=== PATIENT | male | born 1930 | race Caucasian/White ===

== ENCOUNTER 2018-10-25 13:19 | Inpatient (IN) | payer BC ==
[~2018-10-25] VITALS: Ht 170.2 cm; Wt 91.3 kg
[2018-10-25] MEDS ORDERED: FINA5TAB4 PO (13:57)
[2018-10-25] MEDS ORDERED: LEVO500T8 PO (14:00)
[2018-10-25] MEDS ORDERED: LEVO25TA4 PO (14:00)
[2018-10-25] MEDS ORDERED: TAMS0.4C97 PO (14:02)
[2018-10-25 14:05] VITALS: BP 121/64
[2018-10-25] MEDS ORDERED: MEMA10TA PO (14:05)
[2018-10-25] MEDS ORDERED: DONE10TA61 PO (14:05)
[2018-10-25] MEDS ORDERED: MAG HYDROX/AL HYDROX/SIMETH 30 ML ORAL.SUSP PO PRN (15:15)
[2018-10-25] MEDS ORDERED: MAGNESIUM HYDROXIDE 2,400 MG/30 ML ORAL.SUSP. PO PRN (15:15)
[2018-10-25] MEDS ORDERED: METHYL SALICYLATE/MENTHOL TOPICAL OINTMENT 29GM TUBE. TP PRN (15:15)
[2018-10-25 15:55] LABS: BASO # 0.1 x10^3/uL (0.0-0.2); BASO % 1 % (0-3); EOS # 0.2 x10^3/uL (0.0-0.7); EOS % 2 % (0-3); HEMATOCRIT 44.2 % (39.0-53.0); HEMOGLOBIN 15.1 g/dL (13.0-17.5); LYMPH # 2.2 x10^3/uL (1.0-4.8); LYMPH % 23 % (24-48); MEAN CORPUSCULAR HEMOGLOBIN 31 pg (25-35); MEAN CORPUSCULAR HGB CONC 34 g/dL (31-37); MEAN CORPUSCULAR VOLUME 92 fL (79-100); MONO # 1.1 x10^3/uL (0.0-1.1); MONO % 12 % (0-9); NEUT # 5.9 x10^3uL (1.8-7.7); NEUT % 62 % (31-73); PLATELET COUNT 351 x10^3/uL (140-400); RED BLOOD COUNT 4.82 x10^6/uL (4.30-5.70); RED CELL DISTRIBUTION WIDTH 13.9 % (11.5-14.5); WHITE BLOOD COUNT 9.4 x10^3/uL (4.0-11.0)
[2018-10-25 16:07] LABS: ALBUMIN 3.3 g/dL (3.4-5.0); ALBUMIN/GLOBULIN RATIO 0.7 (1.0-1.7); CALCIUM 9.4 mg/dL (8.5-10.1); CREATININE 1.5 mg/dL (0.7-1.3); GFR 44.3; POTASSIUM 4.3 mmol/L (3.5-5.1); TOTAL BILIRUBIN 0.7 mg/dL (0.2-1.0); TOTAL PROTEIN 8.3 g/dL (6.4-8.2)
[2018-10-25 16:40] VITALS: BP 159/72
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
[2018-10-25] MEDS: DONEPEZIL HCL 10 MG TABLET PO SCH (20:21)
[2018-10-25] MEDS: MEMANTINE 10 MG TABLET. PO SCH (20:21)
[2018-10-25] MEDS: TAMSULOSIN 0.4 MG CAP.ER.24H. PO SCH (20:21)
[2018-10-26 03:28] LABS: BILIRUBIN,URINE NEG (NEG); CLARITY,URINE HAZY; COLOR,URINE YELLOW; GLUCOSE,URINE NEG (NEG)
[2018-10-26 03:29] LABS: BACTERIA,URINE MOD /HPF (0-FEW); NITRITE,URINE NEG (NEG); RBC,URINE >40 /HPF (0-2); SQUAMOUS EPITHELIAL CELL,UR FEW /LPF; UROBILINOGEN,URINE 0.2 mg/dL (0.2 mg/dL); WBC,URINE >40 /HPF (0-4)
[2018-10-26] MEDS: LEVOTHYROXINE 25 MCG TABLET. PO SCH (04:55)
[2018-10-26] MEDS: levoFLOXacin 250 MG TABLET PO SCH (04:55)
[2018-10-26 05:10] LABS: THYROXINE 9.2 ug/dL (4.5-12.0)
[2018-10-26 05:47] VITALS: BP 105/69
[2018-10-26 06:08] LABS: HEMOGLOBIN A1C 5.8 % (4.8-5.6)
[2018-10-26] MEDS: MEMANTINE 10 MG TABLET. PO SCH ×2 (08:11→19:22)
[2018-10-26] MEDS: DONEPEZIL HCL 10 MG TABLET PO SCH ×2 (08:11→19:22)
[2018-10-26] MEDS: FINASTERIDE 5 MG TABLET PO SCH (08:12)
[2018-10-26] MEDS: ACETAMINOPHEN 325 MG TABLET PO PRN (08:12)
--- NOTE | 2018-10-26 09:27 | PDOC ---
Exam Note: Eduardo Note: Late entry for DOS 10.25.2018. Please also refer to the separate dictated note~ for this date of service dictated separately.~Patient seen individually. Discussed the patient with Nursing staff reviewed the chart.~Reviewed interim history and current functioning. Reviewed vital signs,~Labs/ Radiology~and current medications noted below. Continue current treatment with the changes noted in the dictated addendum note Assessment: Vital Signs: VS - Last 72 Hours, by Label Date Time Temp Pulse Resp B/P (MAP) Pulse Ox O2 Delivery O2 Flow Rate FiO2 10/26/18 05:47 97.6 90 18 105/69 (81) 98 10/25/18 16:40 97.4 83 18 159/72 (101) 97 10/25/18 14:05 97.1 73 20 121/64 (83) 99 Vital Signs Date Time Temp Pulse Resp B/P (MAP) Pulse Ox O2 Delivery O2 Flow Rate FiO2 10/26/18 05:47 97.6 90 18 105/69 (81) 98 I&O Intake and Output 10/26/18 07:00 Intake Total 440 ml Balance 440 ml Intake Oral 440 ml # Voids 2 Labs: Laboratory Tests Test 10/25/18 15:35 10/26/18 01:20 White Blood Count 9.4 x10^3/uL (4.0-11.0) Red Blood Count 4.82 x10^6/uL (4.30-5.70) Hemoglobin 15.1 g/dL (13.0-17.5) Hematocrit 44.2 % (39.0-53.0) Mean Corpuscular Volume 92 fL (79-100) Mean Corpuscular Hemoglobin 31 pg (25-35) Mean Corpuscular Hemoglobin Concent 34 g/dL (31-37) Red Cell Distribution Width 13.9 % (11.5-14.5) Platelet Count 351 x10^3/uL (140-400) Neutrophils (%) (Auto) 62 % (31-73) Lymphocytes (%) (Auto) 23 % (24-48) L Monocytes (%) (Auto) 12 % (0-9) H Eosinophils (%) (Auto) 2 % (0-3) Basophils (%) (Auto) 1 % (0-3) Neutrophils # (Auto) 5.9 x10^3uL (1.8-7.7) Lymphocytes # (Auto) 2.2 x10^3/uL (1.0-4.8) Monocytes # (Auto) 1.1 x10^3/uL (0.0-1.1) Eosinophils # (Auto) 0.2 x10^3/uL (0.0-0.7) Basophils # (Auto) 0.1 x10^3/uL (0.0-0.2) Sodium Level 135 mmol/L (136-145) L Potassium Level 4.3 mmol/L (3.5-5.1) Chloride Level 100 mmol/L (98-107) Carbon Dioxide Level 29 mmol/L (21-32) Anion Gap 6 (6-14) Blood Urea Nitrogen 20 mg/dL (8-26) Creatinine 1.5 mg/dL (0.7-1.3) H Estimated GFR (Cockcroft-Gault) 44.3 BUN/Creatinine Ratio 13 (6-20) Glucose Level 98 mg/dL (70-99) Hemoglobin A1c 5.8 % (4.8-5.6) H Calcium Level 9.4 mg/dL (8.5-10.1) Total Bilirubin 0.7 mg/dL (0.2-1.0) Aspartate Amino Transferase (AST) 34 U/L (15-37) Alanine Aminotransferase (ALT) 45 U/L (16-63) Alkaline Phosphatase 93 U/L (46-116) Total Protein 8.3 g/dL (6.4-8.2) H Albumin 3.3 g/dL (3.4-5.0) L Albumin/Globulin Ratio 0.7 (1.0-1.7) L Thyroxine (T4) 9.2 ug/dL (4.5-12.0) Total Triiodothyronine (TT3) 84 ng/dL (71-180) Urine Collection Type Unknown Urine Color Yellow Urine Clarity Hazy Urine pH 6.0 Urine Specific [place] 1.015 Urine Protein Trace (NEG-TRACE) Urine Glucose (UA) Neg mg/dL (NEG) Urine Ketones (Stick) 15 mg/dL (NEG) Urine Blood Large (NEG) Urine Nitrite Neg (NEG) Urine Bilirubin Neg (NEG) Urine Urobilinogen Dipstick 0.2 mg/dL (0.2 mg/dL) Urine Leukocyte Esterase Large (NEG) Urine RBC >40 /HPF (0-2) Urine WBC >40 /HPF (0-4) Urine Squamous Epithelial Cells Few /LPF Urine Bacteria Mod /HPF (0-FEW) Current Medications: Meds: Current Medications Acetaminophen (Tylenol) 650 mg PRN Q6HRS PRN PO PAIN / TEMP Last administered on 10/26/18 08:12; Start 10/25/18 at 15:15 Multi-Ingredient Ointment (Analgesic [place]) 1 sheba PRN QID PRN TP MUSCLE PAIN; Start 10/25/18 at 15:15 Al Hydroxide/Mg Hydroxide (Mylanta Plus Xs) 15 ml PRN AFTMEALHC PRN PO DYSPEPSIA; Start 10/25/18 at 15:15 Magnesium Hydroxide (Milk Of Magnesia) 2,400 mg PRN QHS PRN PO CONSTIPATION; Start 10/25/18 at 15:15 Tamsulosin HCl (Flomax) 0.4 mg QHS PO Last administered on 10/25/18at 20:21; Start 10/25/18 at 21:00 Donepezil HCl (Aricept) 10 mg BID PO Last administered on 10/26/18 08:11; Start 10/25/18 at 21:00 Finasteride (Proscar) 5 mg DAILY PO Last administered on 10/26/18 08:12; Start 10/26/18 at 09:00 Levofloxacin (Levaquin) 250 mg DAILY06 PO Last administered on 10/26/18at 04:55 ; Start 10/26/18 at 06:00; Stop 10/31/18 at 05:59 Levothyroxine Sodium (Synthroid) 25 mcg DAILY06 PO Last administered on at 04:55; Start 10/26/18 at 06:00 Memantine (Namenda) 10 mg BID PO Last administered on 10/26/18 08:11; Start at 21:00 Active Scripts Active Reported Namenda (Memantine Hcl) 10 Mg Tablet 10 Mg PO BID Aricept (Donepezil Hcl) 10 Mg Tablet 10 Mg PO BID Flomax (Tamsulosin Hcl) 0.4 Mg Cap.er.24h 0.4 Mg PO QHS Levofloxacin 500 Mg Tablet 250 Mg PO DAILY06 7 Days Levothyroxine Sodium 25 Mcg Tablet 25 Mcg PO DAILYAC Finasteride 5 Mg Tablet 5 Mg PO DAILY I have reviewed the current psychotropics carefully including drug interactions. Risk benefit ratio favors no change other than as noted in my dictated progress note. Diagnosis: Problems: (1) Major neurocognitive disorder (2) Anxiety disorder (3) Dementia in Alzheimer's disease with delusions (4) Dementia in Alzheimer's disease with depression (5) Dementia, vascular, with delusions (6) Dementia, vascular, with depression (7) Impulse control disorder ANASTACIA HERNANDEZ MD Oct 26, 2018 09:27
[2018-10-26 13:23] LABS: THYROID STIM HORMONE (TSH) 2.74 uIU/mL (0.358-3.740)
[2018-10-26 15:13] VITALS: BP 96/59
[2018-10-26] MEDS: TAMSULOSIN 0.4 MG CAP.ER.24H. PO SCH (19:22)
[2018-10-26] MEDS: NYSTATIN/TRIAMCIN TOPICAL CREAM 15GM TUBE. TP SCH (19:24)
--- NOTE | 2018-10-26 20:50 | CONS ---
DATE OF CONSULTATION: 10/26/2018 REASON FOR CONSULTATION: Medical management. HISTORY OF PRESENT ILLNESS: The patient is an 88-year-old male patient who was referred to our facility from [facility] by his primary care physician on account of worsening confusion and being combative, resistant to care. He apparently makes sudden fast movement attempting to scare staff. He has been on one-on-one [facility] and he was admitted there with acute mental status changes and has been there for several days, has had a UTI and was dehydrated and basically he was treated, stabilized, and therefore he was transferred to our facility for inpatient psychiatric stabilization. PAST MEDICAL HISTORY: Significant for hypothyroidism, sick sinus syndrome with pacemaker in place, benign prostatic hypertrophy, recent UTI and dehydration. PAST SURGICAL HISTORY: Unobtainable, however, he has left index finger amputated. PAST PSYCHIATRIC HISTORY: Significant for dementia, vascular, Alzheimer with delusion, depression, behavioral disturbance in addition to being extremely hard of hearing and a history of posttraumatic stress disorder. ALLERGIES: He has no known drug allergies. MEDICATIONS: He is currently on following medications: He is on levofloxacin 150 mg daily for UTI, Aricept 10 mg twice a day, tamsulosin 0.4 mg at bedtime, Namenda 10 mg twice a day, levothyroxine sodium 25 mcg once a day, and finasteride 5 mg daily. FAMILY HISTORY: Noncontributory. SOCIAL HISTORY: The patient lives at home with his who apparently has had a CVA herself and incapacitated consequent to this. He does not smoke, drink alcohol, or use any recreational drugs. REVIEW OF SYSTEMS: Unobtainable. PHYSICAL EXAMINATION: GENERAL: When I examined him this afternoon, he was resting flat in bed, in no apparent respiratory distress, somewhat pale, no jaundice, cyanosis, or thyromegaly. No jugular venous distension. No limb edema. VITAL SIGNS: His heart rate was 82, blood pressure was 96/59, temperature was 97.3, respiratory rate was 18, and oxygen saturation was 100%. HEAD, EYES, EARS, NOSE, AND THROAT: Showed normocephalic, atraumatic. NECK: Supple. HEART: Showed normal first and second heart sounds. No gallop, rub, or murmur. CHEST: Clear to auscultation. No crepitation or rhonchi. ABDOMEN: Distended, soft, nontender. NEUROLOGIC: He is very hard of hearing, but otherwise all his cranial nerves are intact. He moves extremities without difficulty. He ambulates with a walker. LABORATORY DATA: Showed a white cell count 9400, hemoglobin 15, hematocrit 44, MCV 92, and platelet count 351,000 with normal manual differential. His chemistry showed serum sodium of 135, potassium 4.3, chloride 100, bicarbonate 29, anion gap of 6, BUN 20, creatinine 1.5, estimated GFR was 44 mL per minute, his glucose was 98. Hemoglobin A1c was only 5.8%. His calcium was 9.4. Total bilirubin, AST, ALT, alkaline phosphatase were normal. Total protein was 8.3, albumin 3.3. Serum triglycerides were 86, total cholesterol 143, LDL was 87, VLDL was 17, HDL cholesterol was ____ and his cholesterol to HDL cholesterol ratio was 3. TSH was normal at 2.740, total T4 was 9.2, and total T3 was 84. His urinalysis showed the urine was yellow, hazy with a pH of 6, specific gravity of 1.015. There was a trace of protein, negative for glucose, ketones, large amount of blood, negative for nitrite, and large amount of leukocyte esterase, more than 40 wbc's, more than 40 rbc's, and moderate amount of bacteria. IMPRESSION: In summary, this is an 88-year-old male patient who was recently admitted to [facility] with altered mental status, found to be due to urinary tract infection as well as dehydration. He was very confused, being combative, resistant to care and was admitted to this unit for inpatient psychiatric stabilization. Medically, he seems to be generally stable. His vital signs are within acceptable range. His lab work also showed that apart from the abnormal finding in his urinalysis, his CBC was within acceptable range for a man of his age. His kidney function slightly elevated at 1.5. His thyroid function and fasting lipid profile all within acceptable range. PLAN: My plan is obviously to continue with all his current medication and finished a course of levofloxacin and I will follow him closely and make any necessary adjustment or recommendation. Thank you, Dr. Yanez for allowing me to participate in the care of this patient. LULU HAMILTON MD DR: SHAZIA/elan JOB#: [id number] / [id number]
[2018-10-26] MEDS ORDERED: PRAZOSIN 1 MG CAPSULE. PO SCH (21:00)
[2018-10-26] MEDS: LACTOBACILLUS RHAMNOSUS GG 1 CAPSULE. PO SCH (21:00)
--- NOTE | 2018-10-26 22:43 | PDOC ---
Exam Note: Eduardo Note: Please also refer to the separate dictated note~for this date of service dictated separately.~Patient seen individually. Discussed the patient with Nursing staff reviewed the chart.~Reviewed interim history and current functioning. Reviewed vital signs,~Labs/ Radiology~and current medications noted below. Continue current treatment with the changes noted in the dictated addendum note Assessment: Vital Signs: Vital Signs Date Time Temp Pulse Resp B/P (MAP) Pulse Ox O2 Delivery O2 Flow Rate FiO2 10/26/18 15:13 97.3 82 18 96/59 (71) 100 I&O Intake and Output 10/26/18 07:00 Intake Total 440 ml Balance 440 ml Intake Oral 440 ml # Voids 2 Labs: Laboratory Tests Test 10/26/18 01:20 Urine Collection Type Unknown Urine Color Yellow Urine Clarity Hazy Urine pH 6.0 Urine Specific [place] 1.015 Urine Protein Trace (NEG-TRACE) Urine Glucose (UA) Neg mg/dL (NEG) Urine Ketones (Stick) 15 mg/dL (NEG) Urine Blood Large (NEG) Urine Nitrite Neg (NEG) Urine Bilirubin Neg (NEG) Urine Urobilinogen Dipstick 0.2 mg/dL (0.2 mg/dL) Urine Leukocyte Esterase Large (NEG) Urine RBC >40 /HPF (0-2) Urine WBC >40 /HPF (0-4) Urine Squamous Epithelial Cells Few /LPF Urine Bacteria Mod /HPF (0-FEW) Current Medications: Meds: Current Medications Acetaminophen (Tylenol) 650 mg PRN Q6HRS PRN PO PAIN / TEMP Last administered on 10/26/18at 08:12; Start 10/25/18 at 15:15 Multi-Ingredient Ointment (Analgesic [place]) 1 sheba PRN QID PRN TP MUSCLE PAIN; Start 10/25/18 at 15:15 Al Hydroxide/Mg Hydroxide (Mylanta Plus Xs) 15 ml PRN AFTMEALHC PRN PO DYSPEPSIA; Start 10/25/18 at 15:15 Magnesium Hydroxide (Milk Of Magnesia) 2,400 mg PRN QHS PRN PO CONSTIPATION; Start 10/25/18 at 15:15 Tamsulosin HCl (Flomax) 0.4 mg QHS PO Last administered on 10/26/18at 19:22; Start 10/25/18 at 21:00 Donepezil HCl (Aricept) 10 mg BID PO Last administered on 10/26/18 19:22; Start 10/25/18 at 21:00 Finasteride (Proscar) 5 mg DAILY PO Last administered on 10/26/18at 08:12; Start 10/26/18 at 09:00 Levofloxacin (Levaquin) 250 mg DAILY06 PO Last administered on 10/26/18at 04:55 ; Start 10/26/18 at 06:00; Stop 10/31/18 at 05:59 Levothyroxine Sodium (Synthroid) 25 mcg DAILY06 PO Last administered on at 04:55; Start 10/26/18 at 06:00 Memantine (Namenda) 10 mg BID PO Last administered on 10/26/18 19:22; Start at 21:00 Lactobacillus Rhamnosus (Culturelle) 1 cap BID PO ; Start 10/26/18 at 21:00 Nystatin/ Triamcinolone Acetonide (Mycolog Ii) 1 sheba BID TP Last administered on 10/26/18at 19:24; Start 10/26/18 at 21:00 Prazosin HCl (Minipress) 0.5 mg BID PO ; Start 10/26/18 at 21:00; Stop 10/26/18 at 21:00; Status DC Active Scripts Active Reported Namenda (Memantine Hcl) 10 Mg Tablet 10 Mg PO BID Aricept (Donepezil Hcl) 10 Mg Tablet 10 Mg PO BID Flomax (Tamsulosin Hcl) 0.4 Mg Cap.er.24h 0.4 Mg PO QHS Levofloxacin 500 Mg Tablet 250 Mg PO DAILY06 7 Days Levothyroxine Sodium 25 Mcg Tablet 25 Mcg PO DAILYAC Finasteride 5 Mg Tablet 5 Mg PO DAILY I have reviewed the current psychotropics carefully including drug interactions. Risk benefit ratio favors no change other than as noted in my dictated progress note. Diagnosis: Problems: (1) Major neurocognitive disorder (2) Anxiety disorder (3) Dementia in Alzheimer's disease with delusions (4) Dementia in Alzheimer's disease with depression (5) Dementia, vascular, with delusions (6) Dementia, vascular, with depression (7) Impulse control disorder ANASTACIA HERNANDEZ MD Oct 26, 2018 22:43
[2018-10-27 06:01] VITALS: BP 114/71
[2018-10-27] MEDS: levoFLOXacin 250 MG TABLET PO SCH (06:13)
[2018-10-27] MEDS: LEVOTHYROXINE 25 MCG TABLET. PO SCH (06:13)
[2018-10-27] MEDS: DONEPEZIL HCL 10 MG TABLET PO SCH ×2 (08:49→19:22)
[2018-10-27] MEDS: MEMANTINE 10 MG TABLET. PO SCH ×2 (08:49→19:22)
[2018-10-27] MEDS: NYSTATIN/TRIAMCIN TOPICAL CREAM 15GM TUBE. TP SCH ×2 (08:50→19:22)
[2018-10-27] MEDS: FINASTERIDE 5 MG TABLET PO SCH (08:50)
[2018-10-27] MEDS: LACTOBACILLUS RHAMNOSUS GG 1 CAPSULE. PO SCH ×2 (08:50→19:22)
[2018-10-27 16:12] VITALS: BP 115/74
[2018-10-27] MEDS: TAMSULOSIN 0.4 MG CAP.ER.24H. PO SCH (19:22)
[2018-10-27] MEDS: ACETAMINOPHEN 325 MG TABLET PO PRN (20:22)
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
--- NOTE | 2018-10-27 22:23 | PDOC ---
Exam Note: Eduardo Note: Please also refer to the separate dictated note~for this date of service dictated separately.~Patient seen individually. Discussed the patient with Nursing staff reviewed the chart.~Reviewed interim history and current functioning. Reviewed vital signs,~Labs/ Radiology~and current medications noted below. Continue current treatment with the changes noted in the dictated addendum note Assessment: Vital Signs: Vital Signs Date Time Temp Pulse Resp B/P (MAP) Pulse Ox O2 Delivery O2 Flow Rate FiO2 10/27/18 16:12 97.4 82 20 115/74 (88) 94 I&O Intake and Output 10/27/18 07:00 Intake Total 900 ml Balance 900 ml Intake Oral 900 ml # Bowel Movements 1 Current Medications: Meds: Current Medications Acetaminophen (Tylenol) 650 mg PRN Q6HRS PRN PO PAIN / TEMP Last administered on 10/27/18at 20:22; Start 10/25/18 at 15:15 Multi-Ingredient Ointment (Analgesic [place]) 1 sheba PRN QID PRN TP MUSCLE PAIN; Start 10/25/18 at 15:15 Al Hydroxide/Mg Hydroxide (Mylanta Plus Xs) 15 ml PRN AFTMEALHC PRN PO DYSPEPSIA; Start 10/25/18 at 15:15 Magnesium Hydroxide (Milk Of Magnesia) 2,400 mg PRN QHS PRN PO CONSTIPATION; Start 10/25/18 at 15:15 Tamsulosin HCl (Flomax) 0.4 mg QHS PO Last administered on 10/27/18at 19:22; Start 10/25/18 at 21:00 Donepezil HCl (Aricept) 10 mg BID PO Last administered on 10/27/18at 19:22; Start 10/25/18 at 21:00 Finasteride (Proscar) 5 mg DAILY PO Last administered on 10/27/18at 08:50; Start 10/26/18 at 09:00 Levofloxacin (Levaquin) 250 mg DAILY06 PO Last administered on 10/27/18at 06:13 ; Start 10/26/18 at 06:00; Stop 10/31/18 at 05:59 Levothyroxine Sodium (Synthroid) 25 mcg DAILY06 PO Last administered on at 06:13; Start 10/26/18 at 06:00 Memantine (Namenda) 10 mg BID PO Last administered on 10/27/18at 19:22; Start at 21:00 Lactobacillus Rhamnosus (Culturelle) 1 cap BID PO Last administered on at 19:22; Start 10/26/18 at 21:00 Nystatin/ Triamcinolone Acetonide (Mycolog Ii) 1 sheba BID TP Last administered on 10/27/18at 19:22; Start 10/26/18 at 21:00 Prazosin HCl (Minipress) 0.5 mg BID PO ; Start 10/26/18 at 21:00; Stop 10/26/18 at 21:00; Status DC Sertraline HCl (Zoloft) 25 mg DAILY PO ; Start 10/28/18 at 09:00; Stop 10/30/18 at 16:00 Sertraline HCl (Zoloft) 50 mg DAILY PO ; Start 10/31/18 at 09:00 Active Scripts Active Reported Namenda (Memantine Hcl) 10 Mg Tablet 10 Mg PO BID Aricept (Donepezil Hcl) 10 Mg Tablet 10 Mg PO BID Flomax (Tamsulosin Hcl) 0.4 Mg Cap.er.24h 0.4 Mg PO QHS Levofloxacin 500 Mg Tablet 250 Mg PO DAILY06 7 Days Levothyroxine Sodium 25 Mcg Tablet 25 Mcg PO DAILYAC Finasteride 5 Mg Tablet 5 Mg PO DAILY I have reviewed the current psychotropics carefully including drug interactions. Risk benefit ratio favors no change other than as noted in my dictated progress note. Diagnosis: Problems: (1) Major neurocognitive disorder (2) Anxiety disorder (3) Dementia in Alzheimer's disease with delusions (4) Dementia in Alzheimer's disease with depression (5) Dementia, vascular, with delusions (6) Dementia, vascular, with depression (7) Impulse control disorder ANASTACIA HERNANDEZ MD Oct 27, 2018 22:23
[2018-10-28 05:49] VITALS: BP 111/68
[2018-10-28] MEDS: LEVOTHYROXINE 25 MCG TABLET. PO SCH (06:45)
[2018-10-28] MEDS: levoFLOXacin 250 MG TABLET PO SCH (06:45)
[2018-10-28] MEDS: DONEPEZIL HCL 10 MG TABLET PO SCH ×3 (07:59→21:00)
[2018-10-28] MEDS: MEMANTINE 10 MG TABLET. PO SCH ×3 (07:59→21:00)
[2018-10-28] MEDS: FINASTERIDE 5 MG TABLET PO SCH (07:59)
[2018-10-28] MEDS: LACTOBACILLUS RHAMNOSUS GG 1 CAPSULE. PO SCH ×3 (07:59→21:00)
[2018-10-28] MEDS: SERTRALINE 25 MG TABLET. PO SCH (08:00)
[2018-10-28] MEDS: NYSTATIN/TRIAMCIN TOPICAL CREAM 15GM TUBE. TP SCH ×2 (11:56→21:00)
[2018-10-28 16:38] VITALS: BP 119/76
[2018-10-28] MEDS: TAMSULOSIN 0.4 MG CAP.ER.24H. PO SCH ×2 (19:49→21:00)
--- NOTE | 2018-10-28 22:44 | PDOC ---
Exam Note: Eduardo Note: Please also refer to the separate dictated note~for this date of service dictated separately.~Patient seen individually. Discussed the patient with Nursing staff reviewed the chart.~Reviewed interim history and current functioning. Reviewed vital signs,~Labs/ Radiology~and current medications noted below. Continue current treatment with the changes noted in the dictated addendum note Assessment: Vital Signs: Vital Signs Date Time Temp Pulse Resp B/P (MAP) Pulse Ox O2 Delivery O2 Flow Rate FiO2 10/28/18 16:38 97.6 74 18 119/76 (90) 98 I&O Intake and Output 10/28/18 07:00 Intake Total 660 ml Balance 660 ml Intake Oral 660 ml # Voids 1 Current Medications: Meds: Current Medications Acetaminophen (Tylenol) 650 mg PRN Q6HRS PRN PO PAIN / TEMP Last administered on 10/27/18at 20:22; Start 10/25/18 at 15:15 Multi-Ingredient Ointment (Analgesic [place]) 1 sheba PRN QID PRN TP MUSCLE PAIN; Start 10/25/18 at 15:15 Al Hydroxide/Mg Hydroxide (Mylanta Plus Xs) 15 ml PRN AFTMEALHC PRN PO DYSPEPSIA; Start 10/25/18 at 15:15 Magnesium Hydroxide (Milk Of Magnesia) 2,400 mg PRN QHS PRN PO CONSTIPATION; Start 10/25/18 at 15:15 Tamsulosin HCl (Flomax) 0.4 mg QHS PO Last administered on 10/27/18at 19:22; Start 10/25/18 at 21:00 Donepezil HCl (Aricept) 10 mg BID PO Last administered on 10/28/18at 07:59; Start 10/25/18 at 21:00 Finasteride (Proscar) 5 mg DAILY PO Last administered on 10/28/18at 07:59; Start 10/26/18 at 09:00 Levofloxacin (Levaquin) 250 mg DAILY06 PO Last administered on 10/28/18at 06:45 ; Start 10/26/18 at 06:00; Stop 10/31/18 at 05:59 Levothyroxine Sodium (Synthroid) 25 mcg DAILY06 PO Last administered on at 06:45; Start 10/26/18 at 06:00 Memantine (Namenda) 10 mg BID PO Last administered on 10/28/18at 07:59; Start at 21:00 Lactobacillus Rhamnosus (Culturelle) 1 cap BID PO Last administered on at 07:59; Start 10/26/18 at 21:00 Nystatin/ Triamcinolone Acetonide (Mycolog Ii) 1 sheba BID TP Last administered on 10/28/18at 11:56; Start 10/26/18 at 21:00 Prazosin HCl (Minipress) 0.5 mg BID PO ; Start 10/26/18 at 21:00; Stop 10/26/18 at 21:00; Status DC Sertraline HCl (Zoloft) 25 mg DAILY PO Last administered on 10/28/18at 08:00; Start 10/28/18 at 09:00; Stop 10/30/18 at 16:00 Sertraline HCl (Zoloft) 50 mg DAILY PO ; Start 10/31/18 at 09:00 Nystatin (Nystop) 1 sheba BID TP ; Start 10/29/18 at 09:00 Active Scripts Active Reported Namenda (Memantine Hcl) 10 Mg Tablet 10 Mg PO BID Aricept (Donepezil Hcl) 10 Mg Tablet 10 Mg PO BID Flomax (Tamsulosin Hcl) 0.4 Mg Cap.er.24h 0.4 Mg PO QHS Levofloxacin 500 Mg Tablet 250 Mg PO DAILY06 7 Days Levothyroxine Sodium 25 Mcg Tablet 25 Mcg PO DAILYAC Finasteride 5 Mg Tablet 5 Mg PO DAILY I have reviewed the current psychotropics carefully including drug interactions. Risk benefit ratio favors no change other than as noted in my dictated progress note. Diagnosis: Problems: (1) Major neurocognitive disorder (2) Anxiety disorder (3) Dementia in Alzheimer's disease with delusions (4) Dementia in Alzheimer's disease with depression (5) Dementia, vascular, with delusions (6) Dementia, vascular, with depression (7) Impulse control disorder ANASTACIA HERNANDEZ MD Oct 28, 2018 22:44
[2018-10-29] MEDS: LEVOTHYROXINE 25 MCG TABLET. PO SCH ×2 (06:06→06:48)
[2018-10-29] MEDS: levoFLOXacin 250 MG TABLET PO SCH ×2 (06:06→06:48)
[2018-10-29 06:29] VITALS: BP_SYST 127; BP_SYST 98; BP_DIAS 59; BP_DIAS 79
[2018-10-29] MEDS: MEMANTINE 10 MG TABLET. PO SCH ×2 (08:50→20:15)
[2018-10-29] MEDS: DONEPEZIL HCL 10 MG TABLET PO SCH ×2 (08:50→20:15)
[2018-10-29] MEDS: LACTOBACILLUS RHAMNOSUS GG 1 CAPSULE. PO SCH ×2 (08:50→20:15)
[2018-10-29] MEDS: ACETAMINOPHEN 325 MG TABLET PO PRN (08:50)
[2018-10-29] MEDS: FINASTERIDE 5 MG TABLET PO SCH (08:50)
[2018-10-29] MEDS: SERTRALINE 25 MG TABLET. PO SCH (08:50)
[2018-10-29] MEDS: NYSTATIN/TRIAMCIN TOPICAL CREAM 15GM TUBE. TP SCH ×2 (08:50→20:24)
[2018-10-29] MEDS: NYSTATIN TOPICAL POWDER 15GM BOTTLE. TP SCH ×2 (08:52→20:18)
[2018-10-29 16:55] VITALS: BP 123/72
[2018-10-29] MEDS: TAMSULOSIN 0.4 MG CAP.ER.24H. PO SCH (20:15)
--- NOTE | 2018-10-29 21:03 | PN ---
DATE: 10/27/2018 PSYCHIATRIC PROGRESS NOTE This late entry 10/27/2018 covers elements not covered in my initial note. SUBJECTIVE: I met with the patient in the evening. The patient slept 5 hours previous night. Remains confused, nonverbal, sat on the couch in the evening as I met with him. Compliant with medications. He startles easily. He does seem to have symptoms of posttraumatic stress disorder. We considered starting prazosin, but his blood pressure is already low and Dr. Jaquez suggested against this. REVIEW OF SYSTEMS: No CV, , pulmonary, eye, ENT system symptoms on review. Reliability poor. MENTAL STATUS EXAM: Oriented to himself. Insight, judgment, recent and remote memory, attention, concentration, fund of knowledge poor, consistent with his diagnosis. IMPRESSION: Major neurocognitive disorder, Alzheimer, vascular with delusion, depression, behavioral disturbance; anxiety disorder, unspecified; impulse control disorder, unspecified; posttraumatic stress disorder. PLAN: Start Zoloft 25 mg a day for 3 days, then 50 mg a day. Maintain Aricept, Namenda, unchanged for now. MAN Tobias HERNANDEZ MD DR: JONA/elan JOB#: [id number] / [id number]
--- NOTE | 2018-10-29 21:06 | PN ---
DATE: 10/28/2018 PSYCHIATRIC PROGRESS NOTE This late entry 10/28/2018 covers elements not covered in my initial note. SUBJECTIVE: I met with the patient in the evening. The patient was also staffed at a treatment team meeting with the entire team in the morning. He is sleeping an average 5 hours. Appetite 75%. His , Lelia, attended the treatment team meeting and Myrna, the granddaughter attended as well. Reviewed his history at length, at times he has been aggressive with staff, at other times more compliant with meds and cares. REVIEW OF SYSTEMS: No CV, , pulmonary, eye, ENT system symptoms on review. Reliability poor. MENTAL STATUS EXAM: Oriented to himself. Insight, judgment, recent and remote memory, attention, concentration, fund of knowledge poor, consistent with his diagnosis mentioned in my initial note. PLAN: No change from initial note. MAN Tobias HERNANDEZ MD DR: JONA/elan JOB#: [id number] / [id number]
--- NOTE | 2018-10-29 22:41 | PDOC ---
Exam Note: Eduardo Note: Please also refer to the separate dictated note~for this date of service dictated separately.~Patient seen individually. Discussed the patient with Nursing staff reviewed the chart.~Reviewed interim history and current functioning. Reviewed vital signs,~Labs/ Radiology~and current medications noted below. Continue current treatment with the changes noted in the dictated addendum note Assessment: Vital Signs: Vital Signs Date Time Temp Pulse Resp B/P (MAP) Pulse Ox O2 Delivery O2 Flow Rate FiO2 10/29/18 16:55 98.6 86 20 123/72 (89) 97 Room Air I&O Intake and Output 10/29/18 07:00 Intake Total 720 ml Balance 720 ml Intake Oral 720 ml # Voids 1 # Bowel Movements 1 Current Medications: Meds: Current Medications Acetaminophen (Tylenol) 650 mg PRN Q6HRS PRN PO PAIN / TEMP Last administered on 10/29/18at 08:50; Start 10/25/18 at 15:15 Multi-Ingredient Ointment (Analgesic [place]) 1 sheba PRN QID PRN TP MUSCLE PAIN; Start 10/25/18 at 15:15 Al Hydroxide/Mg Hydroxide (Mylanta Plus Xs) 15 ml PRN AFTMEALHC PRN PO DYSPEPSIA; Start 10/25/18 at 15:15 Magnesium Hydroxide (Milk Of Magnesia) 2,400 mg PRN QHS PRN PO CONSTIPATION; Start 10/25/18 at 15:15 Tamsulosin HCl (Flomax) 0.4 mg QHS PO Last administered on 10/29/18at 20:15; Start 10/25/18 at 21:00 Donepezil HCl (Aricept) 10 mg BID PO Last administered on 10/29/18at 20:15; Start 10/25/18 at 21:00 Finasteride (Proscar) 5 mg DAILY PO Last administered on 10/29/18at 08:50; Start 10/26/18 at 09:00 Levofloxacin (Levaquin) 250 mg DAILY06 PO Last administered on 10/29/18at 06:48 ; Start 10/26/18 at 06:00; Stop 10/31/18 at 05:59 Levothyroxine Sodium (Synthroid) 25 mcg DAILY06 PO Last administered on at 06:48; Start 10/26/18 at 06:00 Memantine (Namenda) 10 mg BID PO Last administered on 10/29/18 20:15; Start at 21:00 Lactobacillus Rhamnosus (Culturelle) 1 cap BID PO Last administered on 20:15; Start 10/26/18 at 21:00 Nystatin/ Triamcinolone Acetonide (Mycolog Ii) 1 sheba BID TP Last administered on 10/29/18at 20:24; Start 10/26/18 at 21:00 Prazosin HCl (Minipress) 0.5 mg BID PO ; Start 10/26/18 at 21:00; Stop 10/26/18 at 21:00; Status DC Sertraline HCl (Zoloft) 25 mg DAILY PO Last administered on 10/29/18at 08:50; Start 10/28/18 at 09:00; Stop 10/30/18 at 16:00 Sertraline HCl (Zoloft) 50 mg DAILY PO ; Start 10/31/18 at 09:00 Nystatin (Nystop) 1 sheba BID TP Last administered on 10/29/18at 20:18; Start at 09:00 Active Scripts Active Reported Namenda (Memantine Hcl) 10 Mg Tablet 10 Mg PO BID Aricept (Donepezil Hcl) 10 Mg Tablet 10 Mg PO BID Flomax (Tamsulosin Hcl) 0.4 Mg Cap.er.24h 0.4 Mg PO QHS Levofloxacin 500 Mg Tablet 250 Mg PO DAILY06 7 Days Levothyroxine Sodium 25 Mcg Tablet 25 Mcg PO DAILYAC Finasteride 5 Mg Tablet 5 Mg PO DAILY I have reviewed the current psychotropics carefully including drug interactions. Risk benefit ratio favors no change other than as noted in my dictated progress note. 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
[2018-10-30] MEDS: LEVOTHYROXINE 25 MCG TABLET. PO SCH (06:35)
[2018-10-30] MEDS: levoFLOXacin 250 MG TABLET PO SCH (06:35)
[2018-10-30 06:57] VITALS: BP 105/67
[2018-10-30] MEDS: LACTOBACILLUS RHAMNOSUS GG 1 CAPSULE. PO SCH ×2 (08:49→20:12)
[2018-10-30] MEDS: DONEPEZIL HCL 10 MG TABLET PO SCH ×2 (08:49→20:14)
[2018-10-30] MEDS: MEMANTINE 10 MG TABLET. PO SCH ×2 (08:49→20:12)
[2018-10-30] MEDS: SERTRALINE 25 MG TABLET. PO SCH (08:49)
[2018-10-30] MEDS: FINASTERIDE 5 MG TABLET PO SCH (08:49)
[2018-10-30] MEDS: NYSTATIN TOPICAL POWDER 15GM BOTTLE. TP SCH ×2 (08:50→20:19)
[2018-10-30] MEDS: NYSTATIN/TRIAMCIN TOPICAL CREAM 15GM TUBE. TP SCH ×2 (08:51→20:19)
[2018-10-30 16:13] VITALS: BP 112/66
[2018-10-30] MEDS: TAMSULOSIN 0.4 MG CAP.ER.24H. PO SCH (20:13)
--- NOTE | 2018-10-30 22:00 | PDOC ---
Exam Note: Eduardo Note: Please also refer to the separate dictated note~for this date of service dictated separately.~Patient seen individually. Discussed the patient with Nursing staff reviewed the chart.~Reviewed interim history and current functioning. Reviewed vital signs,~Labs/ Radiology~and current medications noted below. Continue current treatment with the changes noted in the dictated addendum note Assessment: Vital Signs: Vital Signs Date Time Temp Pulse Resp B/P (MAP) Pulse Ox O2 Delivery O2 Flow Rate FiO2 10/30/18 16:13 98.1 67 20 112/66 (81) 93 10/29/18 16:55 Room Air I&O Intake and Output 10/30/18 07:00 Intake Total 180 ml Balance 180 ml Intake Oral 180 ml # Voids 1 Current Medications: Meds: Current Medications Acetaminophen (Tylenol) 650 mg PRN Q6HRS PRN PO PAIN / TEMP Last administered on 10/29/18at 08:50; Start 10/25/18 at 15:15 Multi-Ingredient Ointment (Analgesic [place]) 1 sheba PRN QID PRN TP MUSCLE PAIN; Start 10/25/18 at 15:15 Al Hydroxide/Mg Hydroxide (Mylanta Plus Xs) 15 ml PRN AFTMEALHC PRN PO DYSPEPSIA; Start 10/25/18 at 15:15 Magnesium Hydroxide (Milk Of Magnesia) 2,400 mg PRN QHS PRN PO CONSTIPATION; Start 10/25/18 at 15:15 Tamsulosin HCl (Flomax) 0.4 mg QHS PO Last administered on 10/30/18at 20:13; Start 10/25/18 at 21:00 Donepezil HCl (Aricept) 10 mg BID PO Last administered on 10/30/18at 20:14; Start 10/25/18 at 21:00 Finasteride (Proscar) 5 mg DAILY PO Last administered on 10/30/18at 08:49; Start 10/26/18 at 09:00 Levofloxacin (Levaquin) 250 mg DAILY06 PO Last administered on 10/30/18at 06:35 ; Start 10/26/18 at 06:00; Stop 10/31/18 at 05:59 Levothyroxine Sodium (Synthroid) 25 mcg DAILY06 PO Last administered on at 06:35; Start 2/12/19 at 06:00 Memantine (Namenda) 10 mg BID PO Last administered on 10/30/18at 20:12; Start at 21:00 Lactobacillus Rhamnosus (Culturelle) 1 cap BID PO Last administered on at 20:12; Start 10/26/18 at 21:00 Nystatin/ Triamcinolone Acetonide (Mycolog Ii) 1 sheba BID TP Last administered on 10/30/18at 20:19; Start 10/26/18 at 21:00 Prazosin HCl (Minipress) 0.5 mg BID PO ; Start 10/26/18 at 21:00; Stop 10/26/18 at 21:00; Status DC Sertraline HCl (Zoloft) 25 mg DAILY PO Last administered on 10/30/18at 08:49; Start 10/28/18 at 09:00; Stop 10/30/18 at 16:00; Status DC Sertraline HCl (Zoloft) 50 mg DAILY PO ; Start 10/31/18 at 09:00 Nystatin (Nystop) 1 sheba BID TP Last administered on 10/30/18at 20:19; Start at 09:00 Active Scripts Active Reported Namenda (Memantine Hcl) 10 Mg Tablet 10 Mg PO BID Aricept (Donepezil Hcl) 10 Mg Tablet 10 Mg PO BID Flomax (Tamsulosin Hcl) 0.4 Mg Cap.er.24h 0.4 Mg PO QHS Levofloxacin 500 Mg Tablet 250 Mg PO DAILY06 7 Days Levothyroxine Sodium 25 Mcg Tablet 25 Mcg PO DAILYAC Finasteride 5 Mg Tablet 5 Mg PO DAILY I have reviewed the current psychotropics carefully including drug interactions. Risk benefit ratio favors no change other than as noted in my dictated progress note. Diagnosis: Problems: (1) Major neurocognitive disorder (2) Anxiety disorder (3) Dementia in Alzheimer's disease with delusions (4) Dementia in Alzheimer's disease with depression (5) Dementia, vascular, with delusions (6) Dementia, vascular, with depression (7) Impulse control disorder ANASTACIA HERNANDEZ MD Oct 30, 2018 22:00
[2018-10-31] MEDS: LEVOTHYROXINE 25 MCG TABLET. PO SCH (05:47)
[2018-10-31 05:58] VITALS: BP 100/60
[2018-10-31] MEDS: MEMANTINE 10 MG TABLET. PO SCH ×2 (08:13→20:02)
[2018-10-31] MEDS: DONEPEZIL HCL 10 MG TABLET PO SCH ×2 (08:13→20:02)
[2018-10-31] MEDS: LACTOBACILLUS RHAMNOSUS GG 1 CAPSULE. PO SCH ×2 (08:13→20:02)
[2018-10-31] MEDS: SERTRALINE 50 MG TABLET. PO SCH (08:14)
[2018-10-31] MEDS: FINASTERIDE 5 MG TABLET PO SCH (08:14)
[2018-10-31] MEDS: NYSTATIN TOPICAL POWDER 15GM BOTTLE. TP SCH ×2 (08:15→20:02)
[2018-10-31 08:18] LABS: HEMOGLOBIN 13.9 g/dL (13.0-17.5); RED BLOOD COUNT 4.47 x10^6/uL (4.30-5.70)
[2018-10-31 08:33] LABS: ALBUMIN 3.2 g/dL (3.4-5.0); ALBUMIN/GLOBULIN RATIO 0.8 (1.0-1.7); CALCIUM 9.1 mg/dL (8.5-10.1); CREATININE 1.6 mg/dL (0.7-1.3); GFR 41.1; POTASSIUM 4.1 mmol/L (3.5-5.1); TOTAL BILIRUBIN 0.8 mg/dL (0.2-1.0); TOTAL PROTEIN 7.4 g/dL (6.4-8.2)
[2018-10-31] MEDS: NYSTATIN/TRIAMCIN TOPICAL CREAM 15GM TUBE. TP SCH ×2 (09:00→20:02)
[2018-10-31 16:19] VITALS: BP 130/75
[2018-10-31] MEDS: TAMSULOSIN 0.4 MG CAP.ER.24H. PO SCH (20:02)
--- NOTE | 2018-10-31 22:41 | PDOC ---
Exam Note: Eduardo Note: Please also refer to the separate dictated note~for this date of service dictated separately.~Patient seen individually. Discussed the patient with Nursing staff reviewed the chart.~Reviewed interim history and current functioning. Reviewed vital signs,~Labs/ Radiology~and current medications noted below. Continue current treatment with the changes noted in the dictated addendum note Assessment: Vital Signs: Vital Signs Date Time Temp Pulse Resp B/P (MAP) Pulse Ox O2 Delivery O2 Flow Rate FiO2 10/31/18 16:19 97.4 66 20 130/75 (93) 98 10/29/18 16:55 Room Air I&O Intake and Output 10/31/18 07:00 Intake Total 720 ml Balance 720 ml Intake Oral 720 ml Labs: Laboratory Tests Test 10/31/18 08:00 White Blood Count 8.0 x10^3/uL (4.0-11.0) Red Blood Count 4.47 x10^6/uL (4.30-5.70) Hemoglobin 13.9 g/dL (13.0-17.5) Hematocrit 41.0 % (39.0-53.0) Mean Corpuscular Volume 92 fL (79-100) Mean Corpuscular Hemoglobin 31 pg (25-35) Mean Corpuscular Hemoglobin Concent 34 g/dL (31-37) Red Cell Distribution Width 14.0 % (11.5-14.5) Platelet Count 385 x10^3/uL (140-400) Sodium Level 138 mmol/L (136-145) Potassium Level 4.1 mmol/L (3.5-5.1) Chloride Level 102 mmol/L (98-107) Carbon Dioxide Level 29 mmol/L (21-32) Anion Gap 7 (6-14) Blood Urea Nitrogen 19 mg/dL (8-26) Creatinine 1.6 mg/dL (0.7-1.3) H Estimated GFR (Cockcroft-Gault) 41.1 BUN/Creatinine Ratio 12 (6-20) Glucose Level 95 mg/dL (70-99) Calcium Level 9.1 mg/dL (8.5-10.1) Total Bilirubin 0.8 mg/dL (0.2-1.0) Aspartate Amino Transferase (AST) 20 U/L (15-37) Alanine Aminotransferase (ALT) 24 U/L (16-63) Alkaline Phosphatase 72 U/L (46-116) Total Protein 7.4 g/dL (6.4-8.2) Albumin 3.2 g/dL (3.4-5.0) L Albumin/Globulin Ratio 0.8 (1.0-1.7) L Current Medications: Meds: Current Medications Acetaminophen (Tylenol) 650 mg PRN Q6HRS PRN PO PAIN / TEMP Last administered on 10/29/18at 08:50; Start 10/25/18 at 15:15 Multi-Ingredient Ointment (Analgesic [place]) 1 sheba PRN QID PRN TP MUSCLE PAIN; Start 10/25/18 at 15:15 Al Hydroxide/Mg Hydroxide (Mylanta Plus Xs) 15 ml PRN AFTMEALHC PRN PO DYSPEPSIA; Start 10/25/18 at 15:15 Magnesium Hydroxide (Milk Of Magnesia) 2,400 mg PRN QHS PRN PO CONSTIPATION; Start 10/25/18 at 15:15 Tamsulosin HCl (Flomax) 0.4 mg QHS PO Last administered on 10/31/18 20:02; Start 10/25/18 at 21:00 Donepezil HCl (Aricept) 10 mg BID PO Last administered on 10/31/18 20:02; Start 10/25/18 at 21:00 Finasteride (Proscar) 5 mg DAILY PO Last administered on 10/31/18at 08:14; Start 10/26/18 at 09:00 Levofloxacin (Levaquin) 250 mg DAILY06 PO Last administered on 10/30/18at 06:35 ; Start 10/26/18 at 06:00; Stop 10/31/18 at 05:59; Status DC Levothyroxine Sodium (Synthroid) 25 mcg DAILY06 PO Last administered on at 05:47; Start 10/26/18 at 06:00 Memantine (Namenda) 10 mg BID PO Last administered on 10/31/18 20:02; Start at 21:00 Lactobacillus Rhamnosus (Culturelle) 1 cap BID PO Last administered on at 20:02; Start 10/26/18 at 21:00 Nystatin/ Triamcinolone Acetonide (Mycolog Ii) 1 sheba BID TP Last administered on 2/17/19at 20:02; Start 10/26/18 at 21:00 Prazosin HCl (Minipress) 0.5 mg BID PO ; Start 10/26/18 at 21:00; Stop 10/26/18 at 21:00; Status DC Sertraline HCl (Zoloft) 25 mg DAILY PO Last administered on 10/30/18at 08:49; Start 10/28/18 at 09:00; Stop 10/30/18 at 16:00; Status DC Sertraline HCl (Zoloft) 50 mg DAILY PO Last administered on 10/31/18at 08:14; Start 10/31/18 at 09:00 Nystatin (Nystop) 1 sheba BID TP Last administered on 10/31/18at 20:02; Start at 09:00 Active Scripts Active Reported Namenda (Memantine Hcl) 10 Mg Tablet 10 Mg PO BID Aricept (Donepezil Hcl) 10 Mg Tablet 10 Mg PO BID Flomax (Tamsulosin Hcl) 0.4 Mg Cap.er.24h 0.4 Mg PO QHS Levofloxacin 500 Mg Tablet 250 Mg PO DAILY06 7 Days Levothyroxine Sodium 25 Mcg Tablet 25 Mcg PO DAILYAC Finasteride 5 Mg Tablet 5 Mg PO DAILY I have reviewed the current psychotropics carefully including drug interactions. Risk benefit ratio favors no change other than as noted in my dictated progress note. Diagnosis: Problems: (1) Major neurocognitive disorder (2) Anxiety disorder (3) Dementia in Alzheimer's disease with delusions (4) Dementia in Alzheimer's disease with depression (5) Dementia, vascular, with delusions (6) Dementia, vascular, with depression (7) Impulse control disorder ANASTACIA HERNANDEZ MD Oct 31, 2018 22:41
--- NOTE | 2018-10-31 23:19 | PN ---
DATE: 10/29/2018 PSYCHIATRIC PROGRESS NOTE This late entry 10/29/2018 covers elements not covered in my initial note. SUBJECTIVE: I met with the patient in the evening. The patient slept 6 hours previous night. He is compliant with medications, cooperative with cares per nursing report. He gets a little anxious, wanders into other patient's rooms, at times a little difficult to redirect, but does respond ultimately. REVIEW OF SYSTEMS: No CV, , pulmonary, eye, ENT system symptoms on review. Reliability poor. MENTAL STATUS EXAM: Oriented to himself. Insight, judgment, recent and remote memory, attention, concentration, fund of knowledge poor, consistent with his diagnosis mentioned in my initial note. IMPRESSION: Major neurocognitive disorder, Alzheimer, vascular with delusion, depression, behavioral disturbance. Rest unchanged. PLAN: Continue psychotropics from initial note. Maintain Aricept, Namenda, Zoloft, which we are increasing starting 10/31/2018, little increase to 50 mg a day. MAN Tobias HERNANDEZ MD DR: JONA/elan JOB#: [id number] / [id number]
--- NOTE | 2018-10-31 23:21 | PN ---
DATE: 10/30/2018 PSYCHIATRIC PROGRESS NOTE This late entry 10/30/2018 covers elements not covered in my initial note. SUBJECTIVE: I met with the patient in the evening. The patient slept 6 hours previous night. He is confused, wanders the hallways, not aggressive. REVIEW OF SYSTEMS: No CV, , pulmonary, eye, ENT system symptoms on review. Reliability poor. MENTAL STATUS EXAM: Oriented to himself. Insight, judgment, recent and remote memory, attention, concentration, fund of knowledge poor, consistent with his diagnosis. He is not very verbal as I met and sat with him. LABORATORY DATA: Reviewed. IMPRESSION: Unchanged from initial note. PLAN: No change from initial note. MAN Tobias HERNANDEZ MD DR: JONA/elan JOB#: [id number] / [id number]
[2018-11-01] MEDS: LEVOTHYROXINE 25 MCG TABLET. PO SCH (05:16)
[2018-11-01 06:19] VITALS: BP 95/66
[2018-11-01] MEDS: LACTOBACILLUS RHAMNOSUS GG 1 CAPSULE. PO SCH ×2 (07:35→19:44)
[2018-11-01] MEDS: DONEPEZIL HCL 10 MG TABLET PO SCH ×2 (07:35→19:44)
[2018-11-01] MEDS: MEMANTINE 10 MG TABLET. PO SCH ×2 (07:35→19:44)
[2018-11-01] MEDS: FINASTERIDE 5 MG TABLET PO SCH (07:36)
[2018-11-01] MEDS: SERTRALINE 50 MG TABLET. PO SCH (07:36)
[2018-11-01] MEDS: NYSTATIN TOPICAL POWDER 15GM BOTTLE. TP SCH ×2 (07:36→19:46)
[2018-11-01] MEDS: NYSTATIN/TRIAMCIN TOPICAL CREAM 15GM TUBE. TP SCH ×2 (07:37→19:46)
[2018-11-01 16:25] VITALS: BP 127/81
[2018-11-01] MEDS: ACETAMINOPHEN 325 MG TABLET PO PRN (19:44)
[2018-11-01] MEDS: TAMSULOSIN 0.4 MG CAP.ER.24H. PO SCH (19:44)
--- NOTE | 2018-11-01 22:28 | PDOC ---
Exam Note: Eduardo Note: Please also refer to the separate dictated note~for this date of service dictated separately.~Patient seen individually. Discussed the patient with Nursing staff reviewed the chart.~Reviewed interim history and current functioning. Reviewed vital signs,~Labs/ Radiology~and current medications noted below. Continue current treatment with the changes noted in the dictated addendum note Assessment: Vital Signs: Vital Signs Date Time Temp Pulse Resp B/P (MAP) Pulse Ox O2 Delivery O2 Flow Rate FiO2 11/01/18 16:25 97.4 76 16 127/81 (96) 95 10/29/18 16:55 Room Air I&O Intake and Output 11/01/18 07:00 Intake Total 1320 ml Balance 1320 ml Intake Oral 1320 ml Current Medications: Meds: Current Medications Acetaminophen (Tylenol) 650 mg PRN Q6HRS PRN PO PAIN / TEMP Last administered on 11/01/18at 19:44; Start 10/25/18 at 15:15 Multi-Ingredient Ointment (Analgesic [place]) 1 sheba PRN QID PRN TP MUSCLE PAIN; Start 10/25/18 at 15:15 Al Hydroxide/Mg Hydroxide (Mylanta Plus Xs) 15 ml PRN AFTMEALHC PRN PO DYSPEPSIA; Start 10/25/18 at 15:15 Magnesium Hydroxide (Milk Of Magnesia) 2,400 mg PRN QHS PRN PO CONSTIPATION; Start 10/25/18 at 15:15 Tamsulosin HCl (Flomax) 0.4 mg QHS PO Last administered on 11/01/18at 19:44; Start 10/25/18 at 21:00 Donepezil HCl (Aricept) 10 mg BID PO Last administered on 11/01/18at 19:44; Start 10/25/18 at 21:00 Finasteride (Proscar) 5 mg DAILY PO Last administered on 11/01/18 07:36; Start 10/26/18 at 09:00 Levofloxacin (Levaquin) 250 mg DAILY06 PO Last administered on 10/30/18at 06:35 ; Start 10/26/18 at 06:00; Stop 10/31/18 at 05:59; Status DC Levothyroxine Sodium (Synthroid) 25 mcg DAILY06 PO Last administered on 05:16; Start 10/26/18 at 06:00 Memantine (Namenda) 10 mg BID PO Last administered on 11/01/18 19:44; Start at 21:00 Lactobacillus Rhamnosus (Culturelle) 1 cap BID PO Last administered on 19:44; Start 10/26/18 at 21:00 Nystatin/ Triamcinolone Acetonide (Mycolog Ii) 1 sheba BID TP Last administered on 11/01/18 19:46; Start 10/26/18 at 21:00 Prazosin HCl (Minipress) 0.5 mg BID PO ; Start 10/26/18 at 21:00; Stop 10/26/18 at 21:00; Status DC Sertraline HCl (Zoloft) 25 mg DAILY PO Last administered on 10/30/18 08:49; Start 10/28/18 at 09:00; Stop 10/30/18 at 16:00; Status DC Sertraline HCl (Zoloft) 50 mg DAILY PO Last administered on 11/01/18at 07:36; Start 10/31/18 at 09:00 Nystatin (Nystop) 1 sheba BID TP Last administered on 11/01/18 19:46; Start at 09:00 Buspirone HCl (Buspar) 5 mg BID@0900,1700 PO ; Start 11/02/18 at 09:00 Active Scripts Active Reported Namenda (Memantine Hcl) 10 Mg Tablet 10 Mg PO BID Aricept (Donepezil Hcl) 10 Mg Tablet 10 Mg PO BID Flomax (Tamsulosin Hcl) 0.4 Mg Cap.er.24h 0.4 Mg PO QHS Levofloxacin 500 Mg Tablet 250 Mg PO DAILY06 7 Days Levothyroxine Sodium 25 Mcg Tablet 25 Mcg PO DAILYAC Finasteride 5 Mg Tablet 5 Mg PO DAILY I have reviewed the current psychotropics carefully including drug interactions. Risk benefit ratio favors no change other than as noted in my dictated progress note. 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
[2018-11-02] MEDS: LEVOTHYROXINE 25 MCG TABLET. PO SCH (05:52)
[2018-11-02 06:05] VITALS: BP 96/61
[2018-11-02] MEDS: LACTOBACILLUS RHAMNOSUS GG 1 CAPSULE. PO SCH ×2 (10:01→19:16)
[2018-11-02] MEDS: MEMANTINE 10 MG TABLET. PO SCH ×2 (10:01→19:16)
[2018-11-02] MEDS: DONEPEZIL HCL 10 MG TABLET PO SCH ×2 (10:01→19:16)
[2018-11-02] MEDS: SERTRALINE 50 MG TABLET. PO SCH (10:02)
[2018-11-02] MEDS: FINASTERIDE 5 MG TABLET PO SCH (10:02)
[2018-11-02] MEDS: NYSTATIN/TRIAMCIN TOPICAL CREAM 15GM TUBE. TP SCH ×2 (10:04→19:17)
[2018-11-02] MEDS: NYSTATIN TOPICAL POWDER 15GM BOTTLE. TP SCH ×2 (10:04→19:17)
[2018-11-02] MEDS: busPIRone 5 MG TABLET. PO SCH ×2 (10:04→17:03)
[2018-11-02 16:32] VITALS: BP 96/50
[2018-11-02] MEDS: TAMSULOSIN 0.4 MG CAP.ER.24H. PO SCH (19:16)
--- NOTE | 2018-11-02 22:14 | PN ---
DATE: 10/31/2018 PSYCHIATRIC PROGRESS NOTE This late entry 10/31/2018 covers elements not covered in my initial note. SUBJECTIVE: I met with the patient in the evening. The patient slept 5-1/4 hours previous night. Remains confused, not aggressive, withdrawn. REVIEW OF SYSTEMS: Hard of hearing. No CV, , pulmonary, eye system symptoms on review. MENTAL STATUS EXAM: Oriented to himself. Insight, judgment, recent and remote memory, attention, concentration, fund of knowledge poor, consistent with his diagnosis mentioned in my initial note. PLAN: No change from initial note and may consider adding BuSpar for anxiety if mood lability and anxiety persist with agitation. MAN Tobias HERNANDEZ MD DR: JONA/elan JOB#: [id number] / [id number]
--- NOTE | 2018-11-02 22:16 | PN ---
DATE: 11/01/2018 PSYCHIATRIC PROGRESS NOTE This late entry 11/01/2018, covers elements not covered in my initial note. SUBJECTIVE: I met with the patient in the evening. The patient slept 8 hours previous night. He remains anxious, somewhat restless at times, but redirects. Being hard of hearing further complicates his confusion. REVIEW OF SYSTEMS: No CV, , pulmonary, eye system symptoms on review. Reliability poor. MENTAL STATUS EXAM: Oriented to himself. Insight, judgment, recent and remote memory, attention, concentration, fund of knowledge poor, consistent with his diagnosis mentioned in my initial note. PLAN: No change from initial note. Start BuSpar 5 mg 9:00 a.m., 5:00 p.m. Rest unchanged from initial note. MAN CorrinaAlma HERNANDEZ MD DR: JONA/elan JOB#: [id number] / [id number]
--- NOTE | 2018-11-02 22:44 | PDOC ---
Exam Note: Eduardo Note: Please also refer to the separate dictated note~for this date of service dictated separately.~Patient seen individually. Discussed the patient with Nursing staff reviewed the chart.~Reviewed interim history and current functioning. Reviewed vital signs,~Labs/ Radiology~and current medications noted below. Continue current treatment with the changes noted in the dictated addendum note Assessment: Vital Signs: Vital Signs Date Time Temp Pulse Resp B/P (MAP) Pulse Ox O2 Delivery O2 Flow Rate FiO2 11/02/18 16:32 97.3 66 16 96/50 (65) 95 Room Air I&O Intake and Output 11/02/18 07:00 Intake Total 1320 ml Balance 1320 ml Intake Oral 1320 ml Current Medications: Meds: Current Medications Acetaminophen (Tylenol) 650 mg PRN Q6HRS PRN PO PAIN / TEMP Last administered on 11/01/18at 19:44; Start 10/25/18 at 15:15 Multi-Ingredient Ointment (Analgesic [place]) 1 sheba PRN QID PRN TP MUSCLE PAIN; Start 10/25/18 at 15:15 Al Hydroxide/Mg Hydroxide (Mylanta Plus Xs) 15 ml PRN AFTMEALHC PRN PO DYSPEPSIA; Start 10/25/18 at 15:15 Magnesium Hydroxide (Milk Of Magnesia) 2,400 mg PRN QHS PRN PO CONSTIPATION; Start 10/25/18 at 15:15 Tamsulosin HCl (Flomax) 0.4 mg QHS PO Last administered on 11/02/18at 19:16; Start 10/25/18 at 21:00 Donepezil HCl (Aricept) 10 mg BID PO Last administered on 11/02/18at 19:16; Start 10/25/18 at 21:00 Finasteride (Proscar) 5 mg DAILY PO Last administered on 11/02/18at 10:02; Start 10/26/18 at 09:00 Levofloxacin (Levaquin) 250 mg DAILY06 PO Last administered on 10/30/18at 06:35 ; Start 10/26/18 at 06:00; Stop 10/31/18 at 05:59; Status DC Levothyroxine Sodium (Synthroid) 25 mcg DAILY06 PO Last administered on at 05:52; Start 10/26/18 at 06:00 Memantine (Namenda) 10 mg BID PO Last administered on 11/02/18 19:16; Start at 21:00 Lactobacillus Rhamnosus (Culturelle) 1 cap BID PO Last administered on 19:16; Start 10/26/18 at 21:00 Nystatin/ Triamcinolone Acetonide (Mycolog Ii) 1 sheba BID TP Last administered on 11/02/18 19:17; Start 10/26/18 at 21:00 Prazosin HCl (Minipress) 0.5 mg BID PO ; Start 10/26/18 at 21:00; Stop 10/26/18 at 21:00; Status DC Sertraline HCl (Zoloft) 25 mg DAILY PO Last administered on 10/30/18at 08:49; Start 10/28/18 at 09:00; Stop 10/30/18 at 16:00; Status DC Sertraline HCl (Zoloft) 50 mg DAILY PO Last administered on 11/02/18 10:02; Start 10/31/18 at 09:00 Nystatin (Nystop) 1 sheba BID TP Last administered on 11/02/18 19:17; Start at 09:00 Buspirone HCl (Buspar) 5 mg BID@0900,1700 PO Last administered on 11/02/18 17: 03; Start 11/02/18 at 09:00 Active Scripts Active Reported Namenda (Memantine Hcl) 10 Mg Tablet 10 Mg PO BID Aricept (Donepezil Hcl) 10 Mg Tablet 10 Mg PO BID Flomax (Tamsulosin Hcl) 0.4 Mg Cap.er.24h 0.4 Mg PO QHS Levofloxacin 500 Mg Tablet 250 Mg PO DAILY06 7 Days Levothyroxine Sodium 25 Mcg Tablet 25 Mcg PO DAILYAC Finasteride 5 Mg Tablet 5 Mg PO DAILY I have reviewed the current psychotropics carefully including drug interactions. Risk benefit ratio favors no change other than as noted in my dictated progress note. 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
[2018-11-03] MEDS: LEVOTHYROXINE 25 MCG TABLET. PO SCH (05:26)
[2018-11-03 05:52] VITALS: BP 95/60
[2018-11-03] MEDS: busPIRone 5 MG TABLET. PO SCH ×2 (08:00→16:13)
[2018-11-03] MEDS: LACTOBACILLUS RHAMNOSUS GG 1 CAPSULE. PO SCH ×2 (08:00→19:23)
[2018-11-03] MEDS: MEMANTINE 10 MG TABLET. PO SCH ×2 (08:00→19:23)
[2018-11-03] MEDS: FINASTERIDE 5 MG TABLET PO SCH (08:00)
[2018-11-03] MEDS: SERTRALINE 50 MG TABLET. PO SCH (08:00)
[2018-11-03] MEDS: DONEPEZIL HCL 10 MG TABLET PO SCH ×2 (08:00→19:23)
[2018-11-03] MEDS: NYSTATIN TOPICAL POWDER 15GM BOTTLE. TP SCH ×2 (08:01→19:23)
[2018-11-03] MEDS: NYSTATIN/TRIAMCIN TOPICAL CREAM 15GM TUBE. TP SCH ×2 (08:01→19:23)
[2018-11-03 15:24] VITALS: BP 101/66
[2018-11-03] MEDS: TAMSULOSIN 0.4 MG CAP.ER.24H. PO SCH (19:23)
--- NOTE | 2018-11-03 21:40 | PN ---
DATE: 11/02/2018 PSYCHIATRIC PROGRESS NOTE This late entry 11/02/2018 covers elements not covered in my initial note. SUBJECTIVE: I met with the patient in the evening. The patient slept 7 hours previous night. At night, he was somewhat irritable, refusing medications, but during the day on 11/02/2018, he took his meds and was smiling, spends some time in the day room, which is an improvement, less resistive with cares. REVIEW OF SYSTEMS: Hard of hearing. No CV, , pulmonary, eye system symptoms on review. Reliability poor. MENTAL STATUS EXAM: Oriented to himself. Insight, judgment, recent and remote memory, attention, concentration, fund of knowledge poor, consistent with his diagnosis mentioned in my initial note. PLAN: No change from initial note. MAN Tobias HERNANDEZ MD DR: JONA/elan JOB#: [id number] / [id number]
--- NOTE | 2018-11-03 22:21 | PDOC ---
Exam Note: Eduardo Note: Please also refer to the separate dictated note~for this date of service dictated separately.~Patient seen individually. Discussed the patient with Nursing staff reviewed the chart.~Reviewed interim history and current functioning. Reviewed vital signs,~Labs/ Radiology~and current medications noted below. Continue current treatment with the changes noted in the dictated addendum note Assessment: Vital Signs: Vital Signs Date Time Temp Pulse Resp B/P (MAP) Pulse Ox O2 Delivery O2 Flow Rate FiO2 11/03/18 15:24 98.1 98 16 101/66 (78) 94 11/02/18 16:32 Room Air I&O Intake and Output 11/03/18 07:00 Intake Total 1560 ml Balance 1560 ml Intake Oral 1560 ml # Bowel Movements 1 Current Medications: Meds: Current Medications Acetaminophen (Tylenol) 650 mg PRN Q6HRS PRN PO PAIN / TEMP Last administered on 11/01/18at 19:44; Start 10/25/18 at 15:15 Multi-Ingredient Ointment (Analgesic [place]) 1 sheba PRN QID PRN TP MUSCLE PAIN; Start 10/25/18 at 15:15 Al Hydroxide/Mg Hydroxide (Mylanta Plus Xs) 15 ml PRN AFTMEALHC PRN PO DYSPEPSIA; Start 10/25/18 at 15:15 Magnesium Hydroxide (Milk Of Magnesia) 2,400 mg PRN QHS PRN PO CONSTIPATION; Start 10/25/18 at 15:15 Tamsulosin HCl (Flomax) 0.4 mg QHS PO Last administered on 11/03/18at 19:23; Start 10/25/18 at 21:00 Donepezil HCl (Aricept) 10 mg BID PO Last administered on 11/03/18at 19:23; Start 10/25/18 at 21:00 Finasteride (Proscar) 5 mg DAILY PO Last administered on 11/03/18at 08:00; Start 10/26/18 at 09:00 Levofloxacin (Levaquin) 250 mg DAILY06 PO Last administered on 10/30/18at 06:35 ; Start 10/26/18 at 06:00; Stop 10/31/18 at 05:59; Status DC Levothyroxine Sodium (Synthroid) 25 mcg DAILY06 PO Last administered on at 05:26; Start 10/26/18 at 06:00 Memantine (Namenda) 10 mg BID PO Last administered on 11/03/18 19:23; Start at 21:00 Lactobacillus Rhamnosus (Culturelle) 1 cap BID PO Last administered on at 19:23; Start 10/26/18 at 21:00 Nystatin/ Triamcinolone Acetonide (Mycolog Ii) 1 sheba BID TP Last administered on 11/03/18 19:23; Start 10/26/18 at 21:00 Prazosin HCl (Minipress) 0.5 mg BID PO ; Start 10/26/18 at 21:00; Stop 10/26/18 at 21:00; Status DC Sertraline HCl (Zoloft) 25 mg DAILY PO Last administered on 10/30/18at 08:49; Start 10/28/18 at 09:00; Stop 10/30/18 at 16:00; Status DC Sertraline HCl (Zoloft) 50 mg DAILY PO Last administered on 11/03/18at 08:00; Start 10/31/18 at 09:00 Nystatin (Nystop) 1 sheba BID TP Last administered on 11/03/18 19:23; Start at 09:00 Buspirone HCl (Buspar) 5 mg BID@0900,1700 PO Last administered on 11/03/18at 16: 13; Start 11/02/18 at 09:00 Active Scripts Active Reported Namenda (Memantine Hcl) 10 Mg Tablet 10 Mg PO BID Aricept (Donepezil Hcl) 10 Mg Tablet 10 Mg PO BID Flomax (Tamsulosin Hcl) 0.4 Mg Cap.er.24h 0.4 Mg PO QHS Levofloxacin 500 Mg Tablet 250 Mg PO DAILY06 7 Days Levothyroxine Sodium 25 Mcg Tablet 25 Mcg PO DAILYAC Finasteride 5 Mg Tablet 5 Mg PO DAILY I have reviewed the current psychotropics carefully including drug interactions. Risk benefit ratio favors no change other than as noted in my dictated progress note. Diagnosis: Problems: (1) Major neurocognitive disorder (2) Anxiety disorder (3) Dementia in Alzheimer's disease with delusions (4) Dementia in Alzheimer's disease with depression (5) Dementia, vascular, with delusions (6) Dementia, vascular, with depression (7) Impulse control disorder ANASTACIA HERNANDEZ MD Nov 03, 2018 22:21
[2018-11-04] MEDS: LEVOTHYROXINE 25 MCG TABLET. PO SCH (06:11)
[2018-11-04 06:19] VITALS: BP 101/67
[2018-11-04] MEDS: MEMANTINE 10 MG TABLET. PO SCH ×2 (08:43→19:17)
[2018-11-04] MEDS: DONEPEZIL HCL 10 MG TABLET PO SCH ×2 (08:43→19:17)
[2018-11-04] MEDS: NYSTATIN TOPICAL POWDER 15GM BOTTLE. TP SCH ×2 (08:43→19:17)
[2018-11-04] MEDS: FINASTERIDE 5 MG TABLET PO SCH (08:43)
[2018-11-04] MEDS: busPIRone 5 MG TABLET. PO SCH ×2 (08:43→17:50)
[2018-11-04] MEDS: SERTRALINE 50 MG TABLET. PO SCH (08:43)
[2018-11-04] MEDS: NYSTATIN/TRIAMCIN TOPICAL CREAM 15GM TUBE. TP SCH ×2 (08:43→19:17)
[2018-11-04] MEDS: LACTOBACILLUS RHAMNOSUS GG 1 CAPSULE. PO SCH ×2 (08:43→19:17)
[2018-11-04 16:07] VITALS: BP 149/82
[2018-11-04] MEDS: TAMSULOSIN 0.4 MG CAP.ER.24H. PO SCH (19:17)
--- NOTE | 2018-11-04 22:19 | PDOC ---
Exam Note: Eduardo Note: Please also refer to the separate dictated note~for this date of service dictated separately.~Patient seen individually. Discussed the patient with Nursing staff reviewed the chart.~Reviewed interim history and current functioning. Reviewed vital signs,~Labs/ Radiology~and current medications noted below. Continue current treatment with the changes noted in the dictated addendum note Assessment: Vital Signs: Vital Signs Date Time Temp Pulse Resp B/P (MAP) Pulse Ox O2 Delivery O2 Flow Rate FiO2 11/04/18 16:07 98.0 76 18 149/82 (104) 97 11/02/18 16:32 Room Air I&O Intake and Output 11/04/18 07:00 Intake Total 1200 ml Balance 1200 ml Intake Oral 1200 ml # Bowel Movements 1 Current Medications: Meds: Current Medications Acetaminophen (Tylenol) 650 mg PRN Q6HRS PRN PO PAIN / TEMP Last administered on 11/01/18at 19:44; Start 10/25/18 at 15:15 Multi-Ingredient Ointment (Analgesic [place]) 1 sheba PRN QID PRN TP MUSCLE PAIN; Start 10/25/18 at 15:15 Al Hydroxide/Mg Hydroxide (Mylanta Plus Xs) 15 ml PRN AFTMEALHC PRN PO DYSPEPSIA; Start 10/25/18 at 15:15 Magnesium Hydroxide (Milk Of Magnesia) 2,400 mg PRN QHS PRN PO CONSTIPATION; Start 10/25/18 at 15:15 Tamsulosin HCl (Flomax) 0.4 mg QHS PO Last administered on 11/04/18at 19:17; Start 10/25/18 at 21:00 Donepezil HCl (Aricept) 10 mg BID PO Last administered on 11/04/18at 19:17; Start 10/25/18 at 21:00 Finasteride (Proscar) 5 mg DAILY PO Last administered on 11/04/18at 08:43; Start 10/26/18 at 09:00 Levofloxacin (Levaquin) 250 mg DAILY06 PO Last administered on 10/30/18at 06:35 ; Start 10/26/18 at 06:00; Stop 10/31/18 at 05:59; Status DC Levothyroxine Sodium (Synthroid) 25 mcg DAILY06 PO Last administered on at 06:11; Start 10/26/18 at 06:00 Memantine (Namenda) 10 mg BID PO Last administered on 11/04/18 19:17; Start at 21:00 Lactobacillus Rhamnosus (Culturelle) 1 cap BID PO Last administered on 19:17; Start 10/26/18 at 21:00 Nystatin/ Triamcinolone Acetonide (Mycolog Ii) 1 sheba BID TP Last administered on 11/04/18 19:17; Start 10/26/18 at 21:00 Prazosin HCl (Minipress) 0.5 mg BID PO ; Start 10/26/18 at 21:00; Stop 10/26/18 at 21:00; Status DC Sertraline HCl (Zoloft) 25 mg DAILY PO Last administered on 10/30/18at 08:49; Start 10/28/18 at 09:00; Stop 10/30/18 at 16:00; Status DC Sertraline HCl (Zoloft) 50 mg DAILY PO Last administered on 11/04/18at 08:43; Start 10/31/18 at 09:00 Nystatin (Nystop) 1 sheba BID TP Last administered on 11/04/18 19:17; Start at 09:00 Buspirone HCl (Buspar) 5 mg BID@0900,1700 PO Last administered on 11/04/18at 17: 50; Start 11/02/18 at 09:00 Active Scripts Active Reported Namenda (Memantine Hcl) 10 Mg Tablet 10 Mg PO BID Aricept (Donepezil Hcl) 10 Mg Tablet 10 Mg PO BID Flomax (Tamsulosin Hcl) 0.4 Mg Cap.er.24h 0.4 Mg PO QHS Levofloxacin 500 Mg Tablet 250 Mg PO DAILY06 7 Days Levothyroxine Sodium 25 Mcg Tablet 25 Mcg PO DAILYAC Finasteride 5 Mg Tablet 5 Mg PO DAILY I have reviewed the current psychotropics carefully including drug interactions. Risk benefit ratio favors no change other than as noted in my dictated progress note. Diagnosis: Problems: (1) Major neurocognitive disorder (2) Anxiety disorder (3) Dementia in Alzheimer's disease with delusions (4) Dementia in Alzheimer's disease with depression (5) Dementia, vascular, with delusions (6) Dementia, vascular, with depression (7) Impulse control disorder ANASTACIA HERNANDEZ MD Nov 04, 2018 22:19
[2018-11-05 06:29] VITALS: BP 118/77
[2018-11-05] MEDS: LEVOTHYROXINE 25 MCG TABLET. PO SCH (06:34)
[2018-11-05] MEDS: ACETAMINOPHEN 325 MG TABLET PO PRN (06:34)
[2018-11-05] MEDS: FINASTERIDE 5 MG TABLET PO SCH (08:31)
[2018-11-05] MEDS: SERTRALINE 50 MG TABLET. PO SCH (08:31)
[2018-11-05] MEDS: busPIRone 5 MG TABLET. PO SCH ×2 (08:31→17:00)
[2018-11-05] MEDS: NYSTATIN/TRIAMCIN TOPICAL CREAM 15GM TUBE. TP SCH ×2 (08:31→21:11)
[2018-11-05] MEDS: LACTOBACILLUS RHAMNOSUS GG 1 CAPSULE. PO SCH ×2 (08:31→21:10)
[2018-11-05] MEDS: DONEPEZIL HCL 10 MG TABLET PO SCH ×2 (08:31→21:10)
[2018-11-05] MEDS: MEMANTINE 10 MG TABLET. PO SCH ×2 (08:31→21:10)
[2018-11-05] MEDS: NYSTATIN TOPICAL POWDER 15GM BOTTLE. TP SCH ×2 (08:31→21:11)
[2018-11-05 09:26] LABS: BASO % 0 % (0-3); EOS # 0.1 x10^3/uL (0.0-0.7); EOS % 2 % (0-3); HEMOGLOBIN 13.1 g/dL (13.0-17.5); LYMPH # 2.4 x10^3/uL (1.0-4.8); LYMPH % 31 % (24-48); MEAN CORPUSCULAR HEMOGLOBIN 31 pg (25-35); MEAN CORPUSCULAR HGB CONC 33 g/dL (31-37); MEAN CORPUSCULAR VOLUME 92 fL (79-100); MONO % 13 % (0-9); NEUT # 4.2 x10^3uL (1.8-7.7); NEUT % 54 % (31-73); PLATELET COUNT 323 x10^3/uL (140-400); RED BLOOD COUNT 4.24 x10^6/uL (4.30-5.70); RED CELL DISTRIBUTION WIDTH 13.9 % (11.5-14.5); WHITE BLOOD COUNT 7.8 x10^3/uL (4.0-11.0)
[2018-11-05 09:40] LABS: ALBUMIN/GLOBULIN RATIO 0.7 (1.0-1.7); CALCIUM 9.1 mg/dL (8.5-10.1); CREATININE 1.7 mg/dL (0.7-1.3); GFR 38.3; POTASSIUM 3.8 mmol/L (3.5-5.1); TOTAL BILIRUBIN 0.7 mg/dL (0.2-1.0); TOTAL PROTEIN 7.1 g/dL (6.4-8.2)
[2018-11-05 16:02] VITALS: BP 125/63
[2018-11-05] MEDS ORDERED: HYDROCORTISONE 1% TOPICAL OINTMENT 30GM TUBE. TP PRN (18:15)
--- NOTE | 2018-11-05 19:43 | PN ---
DATE: 11/03/2018 PSYCHIATRIC PROGRESS NOTE This late entry 11/03/2018 covers elements not covered in my initial note. SUBJECTIVE: I met with the patient in the evening and staffed at treatment team meeting earlier in the day. I reviewed the patient's history at length. The patient's , Lelia, attended the treatment team meeting. We will check the UA, rule out urinary tract infection. Slept 7-1/2 hours previous night. Appetite 75%. He has to be encouraged to take his medications. He has been a little more anxious at times, but coming out more for activities and groups with others. Reportedly, son, Christopher is involved in his care at home with plans to have him return home post-discharge. REVIEW OF SYSTEMS: Hard of hearing. No CV, , pulmonary, eye, ENT system symptoms on review. Reliability poor. MENTAL STATUS EXAM: Oriented to himself. Insight, judgment, recent and remote memory, attention, concentration, fund of knowledge poor, consistent with his diagnosis mentioned in my initial note. PLAN: No change from initial note, but we will increase the Zoloft and may need to adjust BuSpar further. MAN Tobias HERNANDEZ MD DR: JONA/elan JOB#: [id number] / [id number]
[2018-11-05] MEDS: TAMSULOSIN 0.4 MG CAP.ER.24H. PO SCH (21:13)
--- NOTE | 2018-11-05 22:32 | PN ---
DATE: 11/04/2018 PSYCHIATRIC PROGRESS NOTE This late entry 11/04/2018 covers elements not covered in my initial note. SUBJECTIVE: I met with the patient in the evening. The patient slept 6-1/4 hours previous night. Later on review, he slept for three quarters. He has been somewhat anxious, confused, frequently calling out help, help, but . REVIEW OF SYSTEMS: Hard of hearing. No CV, , pulmonary, eye system symptoms on review. MENTAL STATUS EXAM: Oriented to himself. Insight, judgment, recent and remote memory, attention, concentration, fund of knowledge poor, consistent with his diagnosis. I had to talk loudly into his ear and then he can hear. LABORATORY DATA: Reviewed. PLAN: Continue current psychotropics. May consider increasing BuSpar for anxiety. MAN Tobias HERNANDEZ MD DR: JONA/elan JOB#: [id number] / [id number]
--- NOTE | 2018-11-05 22:46 | PDOC ---
Exam Note: Eduardo Note: Please also refer to the separate dictated note~for this date of service dictated separately.~Patient seen individually. Discussed the patient with Nursing staff reviewed the chart.~Reviewed interim history and current functioning. Reviewed vital signs,~Labs/ Radiology~and current medications noted below. Continue current treatment with the changes noted in the dictated addendum note Assessment: Vital Signs: Vital Signs Date Time Temp Pulse Resp B/P (MAP) Pulse Ox O2 Delivery O2 Flow Rate FiO2 11/05/18 16:02 98.0 75 20 125/63 (83) 97 11/05/18 06:29 Room Air I&O Intake and Output 11/05/18 06:59 Intake Total 1320 ml Balance 1320 ml Intake Oral 1320 ml # Voids 1 # Bowel Movements 1 Labs: Laboratory Tests Test 11/05/18 08:58 White Blood Count 7.8 x10^3/uL (4.0-11.0) Red Blood Count 4.24 x10^6/uL (4.30-5.70) L Hemoglobin 13.1 g/dL (13.0-17.5) Hematocrit 39.0 % (39.0-53.0) Mean Corpuscular Volume 92 fL (79-100) Mean Corpuscular Hemoglobin 31 pg (25-35) Mean Corpuscular Hemoglobin Concent 33 g/dL (31-37) Red Cell Distribution Width 13.9 % (11.5-14.5) Platelet Count 323 x10^3/uL (140-400) Neutrophils (%) (Auto) 54 % (31-73) Lymphocytes (%) (Auto) 31 % (24-48) Monocytes (%) (Auto) 13 % (0-9) H Eosinophils (%) (Auto) 2 % (0-3) Basophils (%) (Auto) 0 % (0-3) Neutrophils # (Auto) 4.2 x10^3uL (1.8-7.7) Lymphocytes # (Auto) 2.4 x10^3/uL (1.0-4.8) Monocytes # (Auto) 1.0 x10^3/uL (0.0-1.1) Eosinophils # (Auto) 0.1 x10^3/uL (0.0-0.7) Basophils # (Auto) 0.0 x10^3/uL (0.0-0.2) Sodium Level 139 mmol/L (136-145) Potassium Level 3.8 mmol/L (3.5-5.1) Chloride Level 102 mmol/L (98-107) Carbon Dioxide Level 28 mmol/L (21-32) Anion Gap 9 (6-14) Blood Urea Nitrogen 21 mg/dL (8-26) Creatinine 1.7 mg/dL (0.7-1.3) H Estimated GFR (Cockcroft-Gault) 38.3 BUN/Creatinine Ratio 12 (6-20) Glucose Level 115 mg/dL (70-99) H Calcium Level 9.1 mg/dL (8.5-10.1) Total Bilirubin 0.7 mg/dL (0.2-1.0) Aspartate Amino Transferase (AST) 21 U/L (15-37) Alanine Aminotransferase (ALT) 26 U/L (16-63) Alkaline Phosphatase 68 U/L (46-116) Total Protein 7.1 g/dL (6.4-8.2) Albumin 3.0 g/dL (3.4-5.0) L Albumin/Globulin Ratio 0.7 (1.0-1.7) L Current Medications: Meds: Current Medications Acetaminophen (Tylenol) 650 mg PRN Q6HRS PRN PO PAIN / TEMP Last administered on 11/05/18at 06:34; Start 10/25/18 at 15:15 Multi-Ingredient Ointment (Analgesic [place]) 1 sheba PRN QID PRN TP MUSCLE PAIN; Start 10/25/18 at 15:15 Al Hydroxide/Mg Hydroxide (Mylanta Plus Xs) 15 ml PRN AFTMEALHC PRN PO DYSPEPSIA; Start 10/25/18 at 15:15 Magnesium Hydroxide (Milk Of Magnesia) 2,400 mg PRN QHS PRN PO CONSTIPATION; Start 10/25/18 at 15:15 Tamsulosin HCl (Flomax) 0.4 mg QHS PO Last administered on 11/05/18at 21:13; Start 10/25/18 at 21:00 Donepezil HCl (Aricept) 10 mg BID PO Last administered on 11/05/18at 21:10; Start 10/25/18 at 21:00 Finasteride (Proscar) 5 mg DAILY PO Last administered on 11/05/18 08:31; Start 10/26/18 at 09:00 Levofloxacin (Levaquin) 250 mg DAILY06 PO Last administered on 10/30/18 06:35 ; Start 10/26/18 at 06:00; Stop 10/31/18 at 05:59; Status DC Levothyroxine Sodium (Synthroid) 25 mcg DAILY06 PO Last administered on 06:34; Start 10/26/18 at 06:00 Memantine (Namenda) 10 mg BID PO Last administered on 11/05/18 21:10; Start at 21:00 Lactobacillus Rhamnosus (Culturelle) 1 cap BID PO Last administered on 21:10; Start 10/26/18 at 21:00 Nystatin/ Triamcinolone Acetonide (Mycolog Ii) 1 sheba BID TP Last administered on 11/05/18at 21:11; Start 10/26/18 at 21:00 Prazosin HCl (Minipress) 0.5 mg BID PO ; Start 10/26/18 at 21:00; Stop 10/26/18 at 21:00; Status DC Sertraline HCl (Zoloft) 25 mg DAILY PO Last administered on 10/30/18at 08:49; Start 10/28/18 at 09:00; Stop 10/30/18 at 16:00; Status DC Sertraline HCl (Zoloft) 50 mg DAILY PO Last administered on 11/05/18at 08:31; Start 10/31/18 at 09:00 Nystatin (Nystop) 1 sheba BID TP Last administered on 11/05/18at 21:11; Start at 09:00 Buspirone HCl (Buspar) 5 mg BID@0900,1700 PO Last administered on 11/05/18at 17: 00; Start 11/02/18 at 09:00; Stop 11/05/18 at 17:09; Status DC Buspirone HCl (Buspar) 10 mg BID@0900,1700 PO ; Start 11/06/18 at 09:00 Hydrocortisone (Cortaid) 1 sheba PRN BID PRN TP ITCHING; Start 11/05/18 at 18:15 Active Scripts Active Reported Namenda (Memantine Hcl) 10 Mg Tablet 10 Mg PO BID Aricept (Donepezil Hcl) 10 Mg Tablet 10 Mg PO BID Flomax (Tamsulosin Hcl) 0.4 Mg Cap.er.24h 0.4 Mg PO QHS Levofloxacin 500 Mg Tablet 250 Mg PO DAILY06 7 Days Levothyroxine Sodium 25 Mcg Tablet 25 Mcg PO DAILYAC Finasteride 5 Mg Tablet 5 Mg PO DAILY I have reviewed the current psychotropics carefully including drug interactions. Risk benefit ratio favors no change other than as noted in my dictated progress note. Diagnosis: Problems: (1) Major neurocognitive disorder (2) Anxiety disorder (3) Dementia in Alzheimer's disease with delusions (4) Dementia in Alzheimer's disease with depression (5) Dementia, vascular, with delusions (6) Dementia, vascular, with depression (7) Impulse control disorder ANASTACIA HERNANDEZ MD Nov 05, 2018 22:46
[2018-11-06] MEDS ORDERED: ACET325T9 PO (03:31)
[2018-11-06] MEDS ORDERED: LACT1CAP21 PO (03:33)
[2018-11-06] MEDS ORDERED: MAG30ORA2 PO (03:34)
[2018-11-06] MEDS ORDERED: MAGN400O7 PO (03:35)
[2018-11-06] MEDS ORDERED: METH29OI TP (03:37)
[2018-11-06] MEDS ORDERED: NYST15PO9 TP (03:40)
[2018-11-06] MEDS ORDERED: NYST15CR2 TP (03:41)
[2018-11-06] MEDS ORDERED: SERT50TA PO (03:46)
[2018-11-06] MEDS ORDERED: BUSP10TA PO (03:51)
[2018-11-06] MEDS ORDERED: HYDR28OI6 TP (03:53)
[2018-11-06] MEDS: ACETAMINOPHEN 325 MG TABLET PO PRN (04:49)
[2018-11-06] MEDS: LEVOTHYROXINE 25 MCG TABLET. PO SCH (04:49)
[2018-11-06 05:08] VITALS: BP 113/73
[2018-11-06] MEDS: DONEPEZIL HCL 10 MG TABLET PO SCH (07:55)
[2018-11-06] MEDS: MEMANTINE 10 MG TABLET. PO SCH (07:58)
[2018-11-06] MEDS: LACTOBACILLUS RHAMNOSUS GG 1 CAPSULE. PO SCH (07:58)
[2018-11-06] MEDS: FINASTERIDE 5 MG TABLET PO SCH (07:58)
[2018-11-06] MEDS: SERTRALINE 50 MG TABLET. PO SCH (07:59)
[2018-11-06] MEDS: NYSTATIN/TRIAMCIN TOPICAL CREAM 15GM TUBE. TP SCH (08:00)
[2018-11-06] MEDS: NYSTATIN TOPICAL POWDER 15GM BOTTLE. TP SCH (08:00)
[2018-11-06] MEDS ORDERED: busPIRone 5 MG TABLET. PO SCH (09:00)
--- NOTE | 2018-11-06 19:04 | PDOC ---
Exam Note: Eduardo Note: Please also refer to the separate dictated note~for this date of service dictated separately.~Patient seen individually. Discussed the patient with Nursing staff reviewed the chart.~Reviewed interim history and current functioning. Reviewed vital signs,~Labs/ Radiology~and current medications noted below. Continue current treatment with the changes noted in the dictated addendum note Assessment: Vital Signs: Vital Signs Date Time Temp Pulse Resp B/P (MAP) Pulse Ox O2 Delivery O2 Flow Rate FiO2 11/06/18 05:08 97.2 77 18 113/73 (86) 96 11/05/18 06:29 Room Air I&O Intake and Output 11/06/18 07:00 Intake Total 720 ml Balance 720 ml Intake Oral 720 ml # Voids 1 Current Medications: Meds: Current Medications Acetaminophen (Tylenol) 650 mg PRN Q6HRS PRN PO PAIN / TEMP Last administered on 11/06/18at 04:49; Start 10/25/18 at 15:15; Stop 11/06/18 at 13:15; Status DC Multi-Ingredient Ointment (Analgesic [place]) 1 sudha PRN QID PRN TP MUSCLE PAIN; Start 10/25/18 at 15:15; Stop 11/06/18 at 13:15; Status DC Al Hydroxide/Mg Hydroxide (Mylanta Plus Xs) 15 ml PRN AFTMEALHC PRN PO DYSPEPSIA; Start 10/25/18 at 15:15; Stop 11/06/18 at 13:15; Status DC Magnesium Hydroxide (Milk Of Magnesia) 2,400 mg PRN QHS PRN PO CONSTIPATION; Start 10/25/18 at 15:15; Stop 11/06/18 at 13:15; Status DC Tamsulosin HCl (Flomax) 0.4 mg QHS PO Last administered on 11/05/18at 21:13; Start 10/25/18 at 21:00; Stop 11/06/18 at 13:15; Status DC Donepezil HCl (Aricept) 10 mg BID PO Last administered on 11/06/18at 07:55; Start 10/25/18 at 21:00; Stop 11/06/18 at 13:15; Status DC Finasteride (Proscar) 5 mg DAILY PO Last administered on 11/06/18at 07:58; Start 10/26/18 at 09:00; Stop 11/06/18 at 13:15; Status DC Levofloxacin (Levaquin) 250 mg DAILY06 PO Last administered on 10/30/18at 06:35 ; Start 10/26/18 at 06:00; Stop 10/31/18 at 05:59; Status DC Levothyroxine Sodium (Synthroid) 25 mcg DAILY06 PO Last administered on at 04:49; Start 10/26/18 at 06:00; Stop 11/06/18 at 13:15; Status DC Memantine (Namenda) 10 mg BID PO Last administered on 11/06/18at 07:58; Start at 21:00; Stop 11/06/18 at 13:15; Status DC Lactobacillus Rhamnosus (Culturelle) 1 cap BID PO Last administered on at 07:58; Start 10/26/18 at 21:00; Stop 11/06/18 at 13:15; Status DC Nystatin/ Triamcinolone Acetonide (Mycolog Ii) 1 sudha BID TP Last administered on 11/06/18at 08:00; Start 10/26/18 at 21:00; Stop 11/06/18 at 13:15; Status DC Prazosin HCl (Minipress) 0.5 mg BID PO ; Start 10/26/18 at 21:00; Stop 10/26/18 at 21:00; Status DC Sertraline HCl (Zoloft) 25 mg DAILY PO Last administered on 10/30/18at 08:49; Start 10/28/18 at 09:00; Stop 10/30/18 at 16:00; Status DC Sertraline HCl (Zoloft) 50 mg DAILY PO Last administered on 11/06/18at 07:59; Start 10/31/18 at 09:00; Stop 11/06/18 at 13:15; Status DC Nystatin (Nystop) 1 sudha BID TP Last administered on 11/06/18at 08:00; Start at 09:00; Stop 11/06/18 at 13:15; Status DC Buspirone HCl (Buspar) 5 mg BID@0900,1700 PO Last administered on 11/05/18at 17: 00; Start 11/02/18 at 09:00; Stop 11/05/18 at 17:09; Status DC Buspirone HCl (Buspar) 10 mg BID@0900,1700 PO Last administered on 11/06/18at 07 :58; Start 11/06/18 at 09:00; Stop 11/06/18 at 13:15; Status DC Hydrocortisone (Cortaid) 1 sudha PRN BID PRN TP ITCHING Last administered on 11/06at 04:19; Start 11/05/18 at 18:15; Stop 11/06/18 at 13:15; Status DC Active Scripts Active Reported Anti-Itch (Hydrocortisone Acetate) 28 Gm Oint...g. 1 Sudha TP PRN BID PRN Buspirone Hcl 10 Mg Tablet 10 Mg PO BID@0900,1700 LAST DOSE GIVEN: DATE: TIME: NEXT DOSE DUE: DATE: 11/06 TIME: 5pm Zoloft (Sertraline Hcl) 50 Mg Tablet 50 Mg PO DAILY LAST DOSE GIVEN: DATE: TIME: NEXT DOSE DUE: DATE: 11/07 TIME: 8am Nystatin-Triamcinolone Cream (Nystatin/Triamcin) 15 Gm Cream..g. 1 Sudha TP BID LAST DOSE GIVEN: DATE: TIME: NEXT DOSE DUE: DATE: 11/06 TIME: Bedtime Nystatin 15 Gm Powder 1 Sudha TP BID LAST DOSE GIVEN: DATE: TIME: NEXT DOSE DUE: DATE: 11/06 TIME: Bedtime Analgesic [place] (Methyl Salicylate/Menthol) 28 Gm Oint...g. 1 Sudha TP PRN QID PRN Milk Of Magnesia (Magnesium Hydroxide) 400 Mg/5 Ml Oral.susp 2,400 Mg PO PRN QHS PRN Mag-Al Plus Xs Suspension (Mag Hydrox/Al Hydrox/Simeth) 30 Ml Oral.susp 15 Ml PO PRN AFTMEALHC PRN Tylenol (Acetaminophen) 325 Mg Tablet 650 Mg PO PRN Q6HRS PRN Namenda (Memantine Hcl) 10 Mg Tablet 10 Mg PO BID LAST DOSE GIVEN: DATE: TIME: NEXT DOSE DUE: DATE: 11/06 TIME: Bedtime Aricept (Donepezil Hcl) 10 Mg Tablet 10 Mg PO BID LAST DOSE GIVEN: DATE: TIME: NEXT DOSE DUE: DATE: 11/06 TIME: Bedtime Flomax (Tamsulosin Hcl) 0.4 Mg Cap.er.24h 0.4 Mg PO QHS LAST DOSE GIVEN: DATE: TIME: NEXT DOSE DUE: DATE: 11/07 TIME: 8am Levothyroxine Sodium 25 Mcg Tablet 25 Mcg PO DAILYAC LAST DOSE GIVEN: DATE: TIME: NEXT DOSE DUE: DATE: 11/07 TIME: Take 1 hour before a meal or 2 hours after a meal. Finasteride 5 Mg Tablet 5 Mg PO DAILY LAST DOSE GIVEN: DATE: TIME: NEXT DOSE DUE: DATE: 11/07 TIME: 8am I have reviewed the current psychotropics carefully including drug interactions. Risk benefit ratio favors no change other than as noted in my dictated progress note. 

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
--- NOTE | 2018-11-07 16:21 | PN ---
DATE: 11/05/2018 This is a late entry 11/05/2018 covers elements not covered in my initial note. SUBJECTIVE: I met with the patient in the evening. The patient slept 7 hours previous night. He remains confused, extremely hard of hearing, but has been laughing and joking, pretty yells out at times, but redirects. His part of the yelling is due to him not being able to hear. No CV, , pulmonary, eye system symptoms on review. MENTAL STATUS EXAM: Oriented to himself. Insight, judgment, recent and remote memory, attention, concentration, fund of knowledge poor, consistent with his diagnosis mentioned in my initial note. PLAN: No change from my initial note, but we will increase the BuSpar from 5 mg b.i.d. to 10 mg b.i.d. for anxiety in anticipation of discharge on 11/06/2018. ANASTACIA HERNANDEZ MD DR: JONA/elan JOB#: [id number] / [id number]
--- NOTE | 2018-11-08 22:04 | PDOC ---
Exam Note: Eduardo Note: Late entry for DOD 11.07.2018. Please also refer to the separate dictated note~ for this date of service dictated separately.~Patient seen individually. Discussed the patient with Nursing staff reviewed the chart.~Reviewed interim history and current functioning. Reviewed vital signs,~Labs/ Radiology~and current medications noted below. Continue current treatment with the changes noted in the dictated addendum note Assessment: Vital Signs: Vital Signs Date Time Temp Pulse Resp B/P (MAP) Pulse Ox O2 Delivery O2 Flow Rate FiO2 11/06/18 05:08 97.2 77 18 113/73 (86) 96 11/05/18 06:29 Room Air Current Medications: Meds: Current Medications Acetaminophen (Tylenol) 650 mg PRN Q6HRS PRN PO PAIN / TEMP Last administered on 11/06/18at 04:49; Start 10/25/18 at 15:15; Stop 11/06/18 at 13:15; Status DC Multi-Ingredient Ointment (Analgesic Holland) 1 sudha PRN QID PRN TP MUSCLE PAIN; Start 10/25/18 at 15:15; Stop 11/06/18 at 13:15; Status DC Al Hydroxide/Mg Hydroxide (Mylanta Plus Xs) 15 ml PRN AFTMEALHC PRN PO DYSPEPSIA; Start 10/25/18 at 15:15; Stop 11/06/18 at 13:15; Status DC Magnesium Hydroxide (Milk Of Magnesia) 2,400 mg PRN QHS PRN PO CONSTIPATION; Start 10/25/18 at 15:15; Stop 11/06/18 at 13:15; Status DC Tamsulosin HCl (Flomax) 0.4 mg QHS PO Last administered on 11/05/18at 21:13; Start 10/25/18 at 21:00; Stop 11/06/18 at 13:15; Status DC Donepezil HCl (Aricept) 10 mg BID PO Last administered on 11/06/18at 07:55; Start 10/25/18 at 21:00; Stop 11/06/18 at 13:15; Status DC Finasteride (Proscar) 5 mg DAILY PO Last administered on 11/06/18at 07:58; Start 10/26/18 at 09:00; Stop 11/06/18 at 13:15; Status DC Levofloxacin (Levaquin) 250 mg DAILY06 PO Last administered on 10/30/18at 06:35 ; Start 10/26/18 at 06:00; Stop 10/31/18 at 05:59; Status DC Levothyroxine Sodium (Synthroid) 25 mcg DAILY06 PO Last administered on at 04:49; Start 10/26/18 at 06:00; Stop 11/06/18 at 13:15; Status DC Memantine (Namenda) 10 mg BID PO Last administered on 11/06/18at 07:58; Start at 21:00; Stop 11/06/18 at 13:15; Status DC Lactobacillus Rhamnosus (Culturelle) 1 cap BID PO Last administered on at 07:58; Start 10/26/18 at 21:00; Stop 11/06/18 at 13:15; Status DC Nystatin/ Triamcinolone Acetonide (Mycolog Ii) 1 sudha BID TP Last administered on 11/06/18at 08:00; Start 10/26/18 at 21:00; Stop 11/06/18 at 13:15; Status DC Prazosin HCl (Minipress) 0.5 mg BID PO ; Start 10/26/18 at 21:00; Stop 10/26/18 at 21:00; Status DC Sertraline HCl (Zoloft) 25 mg DAILY PO Last administered on 10/30/18at 08:49; Start 10/28/18 at 09:00; Stop 10/30/18 at 16:00; Status DC Sertraline HCl (Zoloft) 50 mg DAILY PO Last administered on 11/06/18at 07:59; Start 10/31/18 at 09:00; Stop 11/06/18 at 13:15; Status DC Nystatin (Nystop) 1 sudha BID TP Last administered on 11/06/18at 08:00; Start at 09:00; Stop 11/06/18 at 13:15; Status DC Buspirone HCl (Buspar) 5 mg BID@0900,1700 PO Last administered on 11/05/18at 17: 00; Start 11/02/18 at 09:00; Stop 11/05/18 at 17:09; Status DC Buspirone HCl (Buspar) 10 mg BID@0900,1700 PO Last administered on 11/06/18at 07 :58; Start 11/06/18 at 09:00; Stop 11/06/18 at 13:15; Status DC Hydrocortisone (Cortaid) 1 sudha PRN BID PRN TP ITCHING Last administered on 11/06at 04:19; Start 11/05/18 at 18:15; Stop 11/06/18 at 13:15; Status DC Active Scripts Active Reported Anti-Itch (Hydrocortisone Acetate) 28 Gm Oint...g. 1 Sudha TP PRN BID PRN Buspirone Hcl 10 Mg Tablet 10 Mg PO BID@0900,1700 LAST DOSE GIVEN: DATE: TIME: NEXT DOSE DUE: DATE: 11/06 TIME: 5pm Zoloft (Sertraline Hcl) 50 Mg Tablet 50 Mg PO DAILY LAST DOSE GIVEN: DATE: TIME: NEXT DOSE DUE: DATE: 11/07 TIME: 8am Nystatin-Triamcinolone Cream (Nystatin/Triamcin) 15 Gm Cream..g. 1 Sudah TP BID LAST DOSE GIVEN: DATE: TIME: NEXT DOSE DUE: DATE: 11/06 TIME: Bedtime Nystatin 15 Gm Powder 1 Sudha TP BID LAST DOSE GIVEN: DATE: TIME: NEXT DOSE DUE: DATE: 11/06 TIME: Bedtime Analgesic Holland (Methyl Salicylate/Menthol) 28 Gm Oint...g. 1 Sudha TP PRN QID PRN Milk Of Magnesia (Magnesium Hydroxide) 400 Mg/5 Ml Oral.susp 2,400 Mg PO PRN QHS PRN Mag-Al Plus Xs Suspension (Mag Hydrox/Al Hydrox/Simeth) 30 Ml Oral.susp 15 Ml PO PRN AFTMEALHC PRN Tylenol (Acetaminophen) 325 Mg Tablet 650 Mg PO PRN Q6HRS PRN Namenda (Memantine Hcl) 10 Mg Tablet 10 Mg PO BID LAST DOSE GIVEN: DATE: TIME: NEXT DOSE DUE: DATE: 11/06 TIME: Bedtime Aricept (Donepezil Hcl) 10 Mg Tablet 10 Mg PO BID LAST DOSE GIVEN: DATE: TIME: NEXT DOSE DUE: DATE: 11/06 TIME: Bedtime Flomax (Tamsulosin Hcl) 0.4 Mg Cap.er.24h 0.4 Mg PO QHS LAST DOSE GIVEN: DATE: TIME: NEXT DOSE DUE: DATE: 11/07 TIME: 8am Levothyroxine Sodium 25 Mcg Tablet 25 Mcg PO DAILYAC LAST DOSE GIVEN: DATE: TIME: NEXT DOSE DUE: DATE: 11/07 TIME: Take 1 hour before a meal or 2 hours after a meal. Finasteride 5 Mg Tablet 5 Mg PO DAILY LAST DOSE GIVEN: DATE: TIME: NEXT DOSE DUE: DATE: 11/07 TIME: 8am I have reviewed the current psychotropics carefully including drug interactions. Risk benefit ratio favors no change other than as noted in my dictated progress note. Diagnosis: Problems: (1) Major neurocognitive disorder (2) Anxiety disorder (3) Dementia in Alzheimer's disease with delusions (4) Dementia in Alzheimer's disease with depression (5) Dementia, vascular, with delusions (6) Dementia, vascular, with depression (7) Impulse control disorder ANASTACIA HERNANDEZ MD Nov 08, 2018 22:04
--- NOTE | 2018-11-16 12:23 | EKG ---
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
== END 2018-11-06 13:00 | disposition home or self-care (01) | DRG 57 ==
LOC: EDBD → GEROPSY 13:19
PROVIDERS: ADMIT Psychiatry & Neurology Psychiatry; ATTEND Psychiatry & Neurology Psychiatry
DX: G30.9 Alzheimer's disease, unspecified (principal); N39.0 Urinary tract infection, site not specified; F01.50 Vascular dementia, unspecified severity, without behavioral disturbance, psychotic disturbance, mood disturbance, and anxiety; F32.9 Major depressive disorder, single episode, unspecified; F63.9 Impulse disorder, unspecified; E03.9 Hypothyroidism, unspecified; E86.0 Dehydration; F02.80 Dementia in other diseases classified elsewhere, unspecified severity, without behavioral disturbance, psychotic disturbance, mood disturbance, and anxiety; F43.10 Post-traumatic stress disorder, unspecified; H91.90 Unspecified hearing loss, unspecified ear; N40.0 Benign prostatic hyperplasia without lower urinary tract symptoms; Z79.899 Other long term (current) drug therapy; Z95.0 Presence of cardiac pacemaker; Z89.022 Acquired absence of left finger(s)
CPT/HCPCS: 36415; 80053; 80061; 81001; 83036; 84436; 84443; 84480; 85025; 85027; 87086; 93005